=== PATIENT | male | born 1980 | race Two or more races ===

== ENCOUNTER 2018-05-28 01:26 | Inpatient (IN) | payer MEDICAID ==
[~2018-05-28] VITALS: Ht 185.4 cm; Wt 105.6 kg
[2018-05-28] MEDS ORDERED: ALBUTEROL SULF 2.5 MG/0.5ML(0.5%) NEB SOLN NEB ONE ×3 (01:45→03:30)
[2018-05-28] MEDS ORDERED: IPRATROPIUM BROM 0.5 MG/2.5ML INH SOL NEB ONE ×2 (01:45→02:30)
[2018-05-28] MEDS ORDERED: methylPREDNISolone SOD SUCC 125 MG/2 ML VL IV ONE (02:30)
[2018-05-28 03:44] LABS: Basophils # (auto) 0.1 uL; Hemoglobin 11.5 g/dL (13.5-17.5); Lymphocytes # (auto) 2.1 uL; Neutrophils % (auto) 62.2 % (37.0-80.0); Red Blood Cells 5.36 10^6/uL (4.5-5.90)
[2018-05-28 03:46] LABS: Basophils % (auto) 1.2 % (0.0-2.0); Eosinophils # (auto) 0.3 uL; Eosinophils % (auto) 3.2 % (0.0-7.0); Hematocrit 37.6 % (41.0-53.0); Lymphocytes % (auto) 24.4 % (10.0-50.0); Mean Corpuscular Hemoglobin 21.5 pg (28.0-32.0); Mean Corpuscular Hgb Conc. 30.7 g/dL (32.0-36.0); Mean Corpuscular Volume 70.1 fL (80.0-100.0); Monocytes # (auto) 0.8 uL; Neutrophils # (auto) 5.2 uL; Nucleated Red Blood Cells % 0.2 %; Platelet Count (auto) 306 10^3/uL (140-450); Red Cell Distribution Width 19.1 % (11.8-14.3); White Blood Cell 8.4 10^3/uL (4.4-10.8)
[2018-05-28 03:59] LABS: Albumin 3.1 g/dL (3.4-5.0); BUN/Creatinine Ratio 15.7; Calcium 7.6 mg/dL (8.5-10.1); Potassium 3.7 mmol/L (3.5-5.1)
[2018-05-28 04:00] LABS: INR 1.36 (0.9-1.15); Partial Thromboplastin Time 25.7 sec (23.78-33.04); Prothrombin Time 14.3 sec (9.27-12.13)
[2018-05-28 04:04] LABS: Bilirubin, Total 2.2 mg/dL (0.2-1.0); Total Protein 6.4 g/dL (6.4-8.2)
[2018-05-28] MEDS ORDERED: HEPARIN DRIP/D5W 100UNITS/ML 250 ML IV SCH (05:37)
[2018-05-28] MEDS ORDERED: HEPARIN SODIUM (PORCINE) 5000 UNITS/ML 1ML VIAL IV ONE (05:45)
[2018-05-28] MEDS ORDERED: HYDROcodone-ACET 5/325MG TAB PO PRN (06:15)
[2018-05-28] MEDS ORDERED: ONDANSETRON HCL 4 MG/2 ML VIAL IV PRN (06:15)
[2018-05-28] MEDS ORDERED: MORPHINE SULFATE 4 MG/ML SYR/VIAL IV PRN (06:15)
[2018-05-28] MEDS ORDERED: NITROGLYCERIN 0.4 MG SL TAB SL PRN (06:15)
[2018-05-28 07:16] LABS: Cholesterol 116 mg/dL (< 200); HDL Cholesterol 32 mg/dL (40-59); LDL Cholesterol 85 mg/dL (< 100); Triglycerides 75 mg/dL (< 150)
--- NOTE | 2018-05-28 09:33 | NUR ---
Telemetry admit from ER CASEY OBREGON admitted to Telemetry unit after SBAR received. Patient oriented to AMRIT Mantilla RN, unit, room, bed, and unit policies regarding patient care and visiting hours. Patient now on continuous telemetry monitoring, tele box # 25 and telemetry reading on arrival to unit is Sinus Tachycardia, HR-105. Patient placed on bedside oxygen, weighed by bed scale and encouraged to call if they need something. All questions and concerns addressed, patient verbalized understanding.
--- NOTE | 2018-05-28 09:45 | NUR ---
Opening Shift Note Assumed care of patient from Vero RN. Patient is asleep breathing even and unlabored with S/S of distress/SOB or pain. Easy to arouse by name. Instructed on POC and to call for assist PRN. Bed is in low position and call light is in reach. Will continue to monitor for changes Q1hr and PRN.
[2018-05-28] MEDS: FUROSEMIDE 40 MG/4 ML VIAL IV SCH (09:58)
[2018-05-28 10:33] LABS: Urine Bacteria NONE SEEN /hpf (None Seen); Urine Blood Negative /uL (Negative); Urine Specific Gravity 1.016 (1.001-1.035); Urine WBC <1 /hpf (0 - 3)
[2018-05-28 10:47] LABS: Alcohol, Urine < 3.0 mg/dL (0-5); Amphetamine Screen, Urine NEGATIVE (NEGATIVE); Barbiturate Scree,Urine NEGATIVE (NEGATIVE); Benzodiazephine Screen, Urine NEGATIVE (NEGATIVE); Cannabinoid Screen, Urine NEGATIVE (NEGATIVE); Cocaine Screen, Urine NEGATIVE (NEGATIVE); Opiate Scree,Urine NEGATIVE (NEGATIVE); Phencyclidine Screen, Urine NEGATIVE (NEGATIVE)
[2018-05-28] MEDS ORDERED: ALBUAER3 IN (12:34)
[2018-05-28] MEDS ORDERED: HCTZ25T PO (12:34)
[2018-05-28 13:00] VITALS: BP 134/83
[2018-05-28] MEDS: ACETAMINOPHEN 500 MG TAB PO PRN ×2 (14:08→22:02)
[2018-05-28] MEDS ORDERED: POTASSIUM CHLORIDE 8 MEQ TAB PO ONE (15:00)
[2018-05-28 17:21] VITALS: BP 118/69
[2018-05-28] MEDS: Ensure Enlive Strawberry 8oz Bottle PO SCH (18:03)
[2018-05-28 20:00] VITALS: BP 121/51
[2018-05-29 06:08] VITALS: BP 155/99
[2018-05-29 06:44] LABS: Basophils # (auto) 0 uL; Eosinophils # (auto) 0 uL; Hemoglobin 11.5 g/dL (13.5-17.5); Mean Corpuscular Volume 70.1 fL (80.0-100.0); Neutrophils % (auto) 79.3 % (37.0-80.0)
[2018-05-29 06:46] LABS: Basophils % (auto) 0.1 % (0.0-2.0); Hematocrit 37.8 % (41.0-53.0); Lymphocytes % (auto) 10.4 % (10.0-50.0); Mean Corpuscular Hemoglobin 21.3 pg (28.0-32.0); Mean Corpuscular Hgb Conc. 30.4 g/dL (32.0-36.0); Monocytes % (auto) 10.2 % (0.0-12.0); Neutrophils # (auto) 7.6 uL; Nucleated Red Blood Cells % 0.3 %; Platelet Count (auto) 347 10^3/uL (140-450); Red Blood Cells 5.39 10^6/uL (4.5-5.90); Red Cell Distribution Width 18.6 % (11.8-14.3); White Blood Cell 9.6 10^3/uL (4.4-10.8)
[2018-05-29 06:56] LABS: BUN/Creatinine Ratio 22.8; Calcium 8.2 mg/dL (8.5-10.1); Potassium 4.4 mmol/L (3.5-5.1)
--- NOTE | 2018-05-29 07:20 | NUR ---
CLOSING NOTE PATIENT IS RESTING IN BED WITH EVEN AND UNLABORED RESPIRATIONS, O2 ON AT 2L, NO S/S OF DISTRESS OR PAIN. ENDORSED CARE TO ERNESTINA
--- NOTE | 2018-05-29 07:40 | NUR ---
Assumed care of pt, awake and alert, no s&s of distress/sob or pain noted, instructed on poc and to call for assist prn, will continue to monitor for changes q1h and prn.
[2018-05-29] MEDS ORDERED: GIVE UN DILUTED IV STA (07:51)
[2018-05-29] MEDS ORDERED: ADENOSINE IV STA (07:51)
[2018-05-29] MEDS: POTASSIUM CHLORIDE 8 MEQ TAB PO SCH (08:49)
[2018-05-29] MEDS: Ensure Enlive Strawberry 8oz Bottle PO SCH ×3 (08:49→17:44)
[2018-05-29] MEDS: FUROSEMIDE 40 MG/4 ML VIAL IV SCH (08:49)
[2018-05-29 09:29] VITALS: BP 133/88
--- NOTE | 2018-05-29 09:45 | NUR ---
Opening Shift Note Assumed care of patient from day shift RN. Patient is asleep breathing even and unlabored with S/S of distress/SOB or pain. Easy to arouse by name. Instructed on POC and to call for assist PRN. Bed is in low position and call light is in reach. Will continue to monitor for changes Q1hr and PRN.
[2018-05-29 10:14] VITALS: BP 126/74
[2018-05-29] MEDS ORDERED: ALBUTEROL SULF 2.5 MG/0.5ML(0.5%) NEB SOLN ONE (10:27)
[2018-05-29] MEDS ORDERED: IPRATROPIUM BROM 0.5 MG/2.5ML INH SOL ONE (10:27)
--- NOTE | 2018-05-29 12:14 | NUR ---
Pt awake and alert, no s&s of distress/sob or pain noted, will continue to monitor for changes q1h and prn.
[2018-05-29 13:06] VITALS: BP 130/90
--- NOTE | 2018-05-29 15:53 | NUR ---
Pt sleeping, no s&s of distress/sob or pain noted, will continue to monitor for changes q1h and prn.
[2018-05-29 17:02] VITALS: BP 135/87
[2018-05-29] MEDS: SACUBITRIL-VALSARTAN 24mg/26mg TAB PO SCH (23:23)
[2018-05-29] MEDS: CARVEDILOL 3.125 MG TAB PO SCH (23:24)
[2018-05-30] VITALS (7 sets, daily range): BP systolic 90–118; BP diastolic 53–87
[2018-05-30 05:36] LABS: Basophils # (auto) 0.1 uL; Basophils % (auto) 0.9 % (0.0-2.0); Eosinophils # (auto) 0.2 uL; Eosinophils % (auto) 1.8 % (0.0-7.0); Hematocrit 38.5 % (41.0-53.0); Hemoglobin 11.7 g/dL (13.5-17.5); Lymphocytes # (auto) 1.8 uL; Mean Corpuscular Hemoglobin 21.3 pg (28.0-32.0); Mean Corpuscular Hgb Conc. 30.5 g/dL (32.0-36.0); Monocytes # (auto) 0.8 uL; Monocytes % (auto) 8.2 % (0.0-12.0); Neutrophils # (auto) 6.4 uL; Neutrophils % (auto) 69.1 % (37.0-80.0); Nucleated Red Blood Cells % 0.5 %; Platelet Count (auto) 360 10^3/uL (140-450); Red Cell Distribution Width 19.4 % (11.8-14.3); White Blood Cell 9.2 10^3/uL (4.4-10.8)
[2018-05-30 05:53] LABS: BUN/Creatinine Ratio 22.3; Calcium 8.2 mg/dL (8.5-10.1); Potassium 3.9 mmol/L (3.5-5.1)
[2018-05-30] MEDS: SACUBITRIL-VALSARTAN 24mg/26mg TAB PO SCH ×2 (09:16→22:00)
[2018-05-30] MEDS: FUROSEMIDE 40 MG/4 ML VIAL IV SCH (09:16)
[2018-05-30] MEDS: Ensure Enlive Strawberry 8oz Bottle PO SCH ×3 (09:17→18:06)
[2018-05-30] MEDS: POTASSIUM CHLORIDE 8 MEQ TAB PO SCH (09:17)
[2018-05-30] MEDS: CARVEDILOL 3.125 MG TAB PO SCH ×2 (09:17→22:00)
--- NOTE | 2018-05-30 12:27 | NUR ---
Pt awake and alert, easily aroused, no s&s of distress/sob or pain noted, will continue to monitor for changes q1h and prn.
--- NOTE | 2018-05-30 16:00 | NUR ---
PT REPORTS THAT HE IS DOING WELL AND DOES NOT NEED P.T. INTERVENTION.
--- NOTE | 2018-05-30 16:02 | NUR ---
Pt awake and alert, easily aroused, no s&s of distress/sob or pain noted, will continue to monitor for changes q1h and prn.
--- NOTE | 2018-05-30 20:20 | NUR ---
Respiratory note: PT ASSESSED FOR PRN MED NEB TX. HR 84, RR 18, SPO2 99% ON R/A, BS DIMINISHED. NO SIGNS OF ANY RESPIRATORY DISTRESS N0TED. ADVISED PT TO PLEASE CALL IF NEEDED.
--- NOTE | 2018-05-30 21:40 | NUR ---
Opening Shift Note Assumed care of patient from day shift RN. Patient is awake sitting up in bed asking for a snake. Respirations are even and unlabored with no S/S of distress/SOB or pain. Instructed on POC and to call for assist PRN. Bed is in low position and call light is in reach. Will continue to monitor for changes Q1hr and PRN. Addendum: 05/31/18 at 0716 by Amairani Castro RN asking for a snack
--- NOTE | 2018-05-30 23:45 | NUR ---
Respiratory note: PLACED PT ON CPAP PER HIS REQUEST AND ORDERS FOR [facility]. PT WEARING A SIZE MEDIUM FACE MASK, PROTECTION BARRIER IN PLACE, NO SIGNS OF ANY SKIN REDNESS OR BREAKDOWN NOTED. PT FELT COMFORTABLE WITH 13CM H2O PRESSURES WITH 3L B/I. WATER FILLED TO APPROPRIATE LEVELS. PT CONNECTED TO CONTINUOUS PULSOX SPO2 95%, BS COARSE/DIMINISHED. PT IS SLEEPING COMFORTABLY TOLERATING CPAP WELL. CPAP AND PULSOX CONNECTED TO RED OUTLET. WILL CONTINUE TO MONITOR PT.
[2018-05-31] VITALS (8 sets, daily range): BP systolic 93–109; BP diastolic 54–70
--- NOTE | 2018-05-31 07:00 | NUR ---
PT OFF HOSPITAL CPAP MACHINE. PT IS SITTING UP IN BED. NO RESPIRATORY DISTRESS NOTED. SPO2 98% ON 3 L NC HR 86 RR 20 B/S DIMINISHED.
--- NOTE | 2018-05-31 07:04 | NUR ---
CLOSING NOTE PATIENT IS asleep IN BED WITH BIPAP on and EVEN AND UNLABORED RESPIRATIONS. No S/S OF DISTRESS OR PAIN. ENDORSED CARE TO day shift nurse.
[2018-05-31] MEDS: Ensure Enlive Strawberry 8oz Bottle PO SCH ×3 (07:48→17:42)
--- NOTE | 2018-05-31 07:55 | NUR ---
PATIENT ROUNDS PATIENT LYING IN BED, NO DISTRESS NOTED. BED IN LOWEST POSITION, SIDE RAILS UP X2, CALL LIGHT WITHIN REACH. WILL CONTINUE TO MONITOR AND INITIATE PLAN OF CARE.
[2018-05-31 08:02] LABS: Basophils # (auto) 0.1 uL; Basophils % (auto) 1.3 % (0.0-2.0); Hemoglobin 12.3 g/dL (13.5-17.5); Lymphocytes # (auto) 2.9 uL; Monocytes # (auto) 0.7 uL
[2018-05-31 08:05] LABS: Eosinophils # (auto) 0.4 uL; Eosinophils % (auto) 5.1 % (0.0-7.0); Hematocrit 40.4 % (41.0-53.0); Lymphocytes % (auto) 32.7 % (10.0-50.0); Mean Corpuscular Hemoglobin 21.3 pg (28.0-32.0); Mean Corpuscular Hgb Conc. 30.3 g/dL (32.0-36.0); Mean Corpuscular Volume 70.1 fL (80.0-100.0); Neutrophils # (auto) 4.7 uL; Neutrophils % (auto) 52.9 % (37.0-80.0); Nucleated Red Blood Cells % 0.4 %; Platelet Count (auto) 399 10^3/uL (140-450); Red Blood Cells 5.77 10^6/uL (4.5-5.90); White Blood Cell 8.8 10^3/uL (4.4-10.8)
[2018-05-31 08:12] LABS: Red Cell Distribution Width 18.9 % (11.8-14.3)
[2018-05-31 08:29] LABS: Calcium 8.1 mg/dL (8.5-10.1); Potassium 3.9 mmol/L (3.5-5.1)
[2018-05-31 08:31] LABS: BUN/Creatinine Ratio 21.6
[2018-05-31] MEDS: CARVEDILOL 3.125 MG TAB PO SCH ×2 (09:26→23:04)
[2018-05-31] MEDS: SACUBITRIL-VALSARTAN 24mg/26mg TAB PO SCH (09:35)
[2018-05-31] MEDS: POTASSIUM CHLORIDE 8 MEQ TAB PO SCH (09:36)
[2018-05-31] MEDS: FUROSEMIDE 40 MG/4 ML VIAL IV SCH (09:36)
[2018-05-31] MEDS: ACETAMINOPHEN 500 MG TAB PO PRN (16:52)
--- NOTE | 2018-05-31 18:49 | NUR ---
RT NOTE PT WAS SEEN BY RT TO DISCUSS CPAP FOR NOC ORDER. PT STATES THAT HE WILL GO ON AROUND MIDNIGHT. HR 85, RR 16, BS DIM, POX 99% ON 3L NASAL CANNULA. NO SOB OR DISTRESS NOTED. WILL RETURN FOR CPAP Addendum: 05/31/18 at 2012 by Leatha Longo RT Amended: Links added.
--- NOTE | 2018-05-31 20:00 | NUR ---
OPENING NOTES SHIFT REPORT RECEIVED BY DAY SHIFT NURSE. UPON ASSESSMENT, PT AWAKE AND ALERT X 4 WITH NO S/S OF DISTRESS WHILE ON 2L OF O2 VIA N/C. BED IS IN LOWEST POSITION AND BRAKES ARE LOCKED WITH THE SIDE RAILS UP X2. POC DISCUSSED WITH PATIENT, WILL CONTINUE TO MONITOR.
--- NOTE | 2018-06-01 00:30 | NUR ---
RT NOTE PT PLACED ON HOSPITAL OWNED HOME CPAP UNIT # RESPIRATORY 2 ON STATED SETTINGS WITH MEDIUM MASK. CPAP IS PLUGGED TO RED OUTLET. PT IS ON BEDSIDE POX PER PROTOCOL. HUMIDIFIER CHAMBER FILLED TO FILL LINE AND SET TO 1. PT HAS A 4L BLEED IN. PT SHOWN THE QUICK RELEASE ON MASK AND APPEARS TO UNDERSTAND. PT AWARE TO CALL IF HE NEEDS ANY ADJUSTMENTS. CONT ORDERED. POX 96% Addendum: 06/01/18 at 0130 by Leatha Lnogo RT Amended: Links added.
[2018-06-01] MEDS: SACUBITRIL-VALSARTAN 24mg/26mg TAB PO SCH ×2 (00:45→09:53)
--- NOTE | 2018-06-01 02:24 | NUR ---
RT NOTE ROUTINE CPAP CHECK DONE. PT ON HOSPITAL OWNED HOME CPAP UNIT # RESPIRATORY 2 ON STATED SETTINGS WITH MEDIUM MASK. CPAP IS PLUGGED TO RED OUTLET. PT IS ON BEDSIDE POX PER PROTOCOL. HUMIDIFIER CHAMBER FILLED ADEQUATELY AND SET TO 1. PT HAS A 4L BLEED IN. PT IS SLEEPING AND APPEARS COMFORTABLE AT THIS TIME. CONT ORDERED. POX 95% Addendum: 06/01/18 at 0305 by Leatha Longo RT Amended: Links added.
--- NOTE | 2018-06-01 04:08 | NUR ---
RT NOTE ROUTINE CPAP CHECK DONE. PT ON HOSPITAL OWNED HOME CPAP UNIT # RESPIRATORY 2 ON STATED SETTINGS WITH MEDIUM MASK. CPAP IS PLUGGED TO RED OUTLET. PT IS ON BEDSIDE POX PER PROTOCOL. HUMIDIFIER CHAMBER FILLED ADEQUATELY AND SET TO 1. PT HAS A 4L BLEED IN. PT IS SLEEPING AND APPEARS COMFORTABLE AT THIS TIME. CONT ORDERED. POX 94% Addendum: 06/01/18 at 0417 by Leatha Longo RT Amended: Links added.
[2018-06-01 05:31] VITALS: BP 108/68
[2018-06-01 06:22] LABS: Basophils # (auto) 0.1 uL; Eosinophils # (auto) 0.6 uL; Hemoglobin 11.9 g/dL (13.5-17.5); Lymphocytes # (auto) 2.5 uL; Mean Corpuscular Hgb Conc. 29.7 g/dL (32.0-36.0); Monocytes # (auto) 0.7 uL
[2018-06-01 06:27] LABS: Basophils % (auto) 1.1 % (0.0-2.0); Eosinophils % (auto) 7.3 % (0.0-7.0); Hematocrit 40.1 % (41.0-53.0); Lymphocytes % (auto) 29.6 % (10.0-50.0); Mean Corpuscular Volume 70.6 fL (80.0-100.0); Monocytes % (auto) 8.9 % (0.0-12.0); Neutrophils # (auto) 4.4 uL; Neutrophils % (auto) 53.1 % (37.0-80.0); Nucleated Red Blood Cells % 0.2 %; Platelet Count (auto) 354 10^3/uL (140-450); Red Blood Cells 5.68 10^6/uL (4.5-5.90); Red Cell Distribution Width 18.8 % (11.8-14.3); White Blood Cell 8.3 10^3/uL (4.4-10.8)
[2018-06-01 06:42] LABS: Potassium 4.1 mmol/L (3.5-5.1)
[2018-06-01 06:49] LABS: BUN/Creatinine Ratio 21.9
--- NOTE | 2018-06-01 07:25 | NUR ---
Opening Shift Note Assumed care of patient, awake and alert. No S/S of distress/SOB or pain. HOB semi-harding's, at lowest setting, side-rails up x2 for safety. Call light on hand, instructed on POC and to call for assist PRN, will continue to monitor for changes Q1hr and PRN.
--- NOTE | 2018-06-01 07:40 | NUR ---
RT NOTE: PT TOOK CPAP OFF. CURRENTLY ON 4L NC SPO2 100 HR 78 RR 16. BREATH SOUNDS CLEAR T/O. NO RESPIRATORY DISTRESS NOTED. PT UNDERSTOOD TO INFORM NURSE TO CALL RT IF NEED FOR CPAP ARISES. WILL CONTINUE TO MONITOR.
[2018-06-01 07:41] VITALS: BP 115/73
[2018-06-01] MEDS: ACETAMINOPHEN 500 MG TAB PO PRN (08:31)
[2018-06-01 09:00] VITALS: BP 106/72
[2018-06-01] MEDS: FUROSEMIDE 40 MG/4 ML VIAL IV SCH (09:53)
[2018-06-01] MEDS: POTASSIUM CHLORIDE 8 MEQ TAB PO SCH (09:53)
[2018-06-01] MEDS: CARVEDILOL 3.125 MG TAB PO SCH (09:54)
[2018-06-01 12:23] VITALS: BP 106/72
[2018-06-01 13:00] VITALS: BP 102/68
== END 2018-06-01 14:00 | disposition home or self-care (01) | DRG 190 ==
LOC: ER 01:32 → TELE 06:12 → TELE-WESTW 09:40
PROVIDERS: ADMIT Nurse Practitioner Family; ATTEND Internal Medicine
PROC: 5A09357 Assistance with Respiratory Ventilation, Less than 24 Consecutive Hours, Continuous Positive Airway Pressure (ICD-10-PCS; principal; 2018-05-30)
PROC: 5A09357 Assistance with Respiratory Ventilation, Less than 24 Consecutive Hours, Continuous Positive Airway Pressure (ICD-10-PCS; 2018-06-01)
DX: I21.4 Non-ST elevation (NSTEMI) myocardial infarction (principal); I50.43 Acute on chronic combined systolic (congestive) and diastolic (congestive) heart failure; E44.0 Moderate protein-calorie malnutrition; E66.01 Morbid (severe) obesity due to excess calories; E87.1 Hypo-osmolality and hyponatremia; I11.0 Hypertensive heart disease with heart failure; I25.5 Ischemic cardiomyopathy; G47.30 Sleep apnea, unspecified; J45.909 Unspecified asthma, uncomplicated; F15.10 Other stimulant abuse, uncomplicated; Z68.30 Body mass index [BMI] 30.0-30.9, adult
CPT/HCPCS: 36415; 71045; 78452; 80048; 80053; 80061; 80307; 81001; 83735; 83880; 84484; 85025; 85379; 85610; 85730; 93005; 93017; 93306; 94640; 94660; 94761; 96374; G0378; J0153

== ENCOUNTER 2018-06-28 12:06 | Inpatient (IN) | payer MEDICAID ==
[~2018-06-28] VITALS: Ht 185.4 cm; Wt 169.8 kg
[~2018-06-28 12:06] MED LIST: ALBUAER3 IN; HCTZ25T PO
[2018-06-28] MEDS ORDERED: SODIUM CHLORIDE 0.9% 1,000 ML IV ONE (12:33)
[2018-06-28 13:31] LABS: Eosinophils # (auto) 0.2 uL; Hemoglobin 11.3 g/dL (13.5-17.5); Lymphocytes # (auto) 1.6 uL; Neutrophils # (auto) 5.6 uL; Nucleated Red Blood Cells % 0.4 %; Urine Bacteria NONE SEEN /hpf (None Seen); Urine Blood Negative /uL (Negative); Urine Specific Gravity 1.003 (1.001-1.035); Urine WBC <1 /hpf (0 - 3); White Blood Cell 8.5 10^3/uL (4.4-10.8)
[2018-06-28 13:32] LABS: Basophils # (auto) 0.1 uL; Basophils % (auto) 1.5 % (0.0-2.0); Eosinophils % (auto) 2.6 % (0.0-7.0); Hematocrit 37.1 % (41.0-53.0); Lymphocytes % (auto) 18.8 % (10.0-50.0); Mean Corpuscular Hemoglobin 20.5 pg (28.0-32.0); Mean Corpuscular Hgb Conc. 30.5 g/dL (32.0-36.0); Monocytes % (auto) 11.3 % (0.0-12.0); Neutrophils % (auto) 65.8 % (37.0-80.0); Platelet Count (auto) 440 10^3/uL (140-450); Red Cell Distribution Width 19.2 % (11.8-14.3)
[2018-06-28 13:34] LABS: Mean Corpuscular Volume 67.3 fL (80.0-100.0)
[2018-06-28 13:44] LABS: Albumin 3.2 g/dL (3.4-5.0); Alcohol, Urine < 3.0 mg/dL (0-5); Amphetamine Screen, Urine NEGATIVE (NEGATIVE); Barbiturate Scree,Urine NEGATIVE (NEGATIVE); Benzodiazephine Screen, Urine NEGATIVE (NEGATIVE); Calcium 7.9 mg/dL (8.5-10.1); Cannabinoid Screen, Urine NEGATIVE (NEGATIVE); Cocaine Screen, Urine NEGATIVE (NEGATIVE); Opiate Scree,Urine NEGATIVE (NEGATIVE); Phencyclidine Screen, Urine NEGATIVE (NEGATIVE); Potassium 3.4 mmol/L (3.5-5.1)
[2018-06-28 13:45] LABS: INR 1.33 (0.9-1.15); Partial Thromboplastin Time 26.8 sec (23.78-33.04)
[2018-06-28 13:46] LABS: BUN/Creatinine Ratio 10.9
[2018-06-28 13:48] LABS: Bilirubin, Total 2.7 mg/dL (0.2-1.0); Total Protein 6.4 g/dL (6.4-8.2)
[2018-06-28] MEDS ORDERED: FUROSEMIDE 20 MG/2 ML VIAL IV ONE (14:15)
[2018-06-28] MEDS ORDERED: SPIRONOLACTONE 25 MG TAB PO ONE (14:15)
[2018-06-28] MEDS ORDERED: LORazepam 0.5 MG TAB PO PRN (16:45)
[2018-06-28] MEDS ORDERED: TEMAZEPAM 15 MG CAP PO PRN (16:45)
[2018-06-28] MEDS ORDERED: MORPHINE SULFATE 4 MG/ML SYR/VIAL IV PRN ×2 (16:45)
[2018-06-28] MEDS ORDERED: NITROGLYCERIN 0.4 MG SL TAB SL PRN (16:45)
[2018-06-28] MEDS ORDERED: POTASSIUM EFFERVESENT TAB 25 MEQ PO ONE (16:45)
[2018-06-28] MEDS ORDERED: LACTULOSE 20Gm/30ML SOLN PO PRN (16:45)
[2018-06-28] MEDS ORDERED: PROMETHAZINE HCL 25 MG/ML 1ML IV PRN (16:45)
[2018-06-28] MEDS ORDERED: ENOXAPARIN SOD 40 MG/0.4 ML SYRINGE SC SCH (16:48)
[2018-06-28] MEDS: FUROSEMIDE 40 MG/4 ML VIAL IV SCH (18:07)
[2018-06-28] MEDS: SPIRONOLACTONE 25 MG TAB PO SCH (18:07)
[2018-06-28] MEDS ORDERED: ALBUTEROL SULF 2.5 MG/0.5ML(0.5%) NEB SOLN NEB PRN (20:00)
[2018-06-28 20:05] VITALS: BP 122/84
--- NOTE | 2018-06-28 20:05 | NUR ---
Telemetry admit from ER SABASCASEY admitted to Telemetry unit after no SBAR received. Patient oriented to ANISHA WALTERS, RN primary RN, unit, room, bed, and unit policies regarding patient care and visiting hours. Patient now on continuous telemetry monitoring, tele box # 17 and telemetry reading on arrival to unit is normal sinus rhythm at 97 beats per minute. Patient placed on bedside oxygen at 2 liters per oxygen via nasal cannula, weighed by bedscale and encouraged to call if they need something. All questions and concerns addressed, patient verbalized understanding. Patient reporting 8/10 chest pain, no radiation to extremities. Pain lasted less than five minutes, as soon as RN left room and returned with EKG machine patient reported pain had ceased. EKG performed, reading normal sinus rhythm with old infarct per machine. Patient educated to inform RN if pain returned, patient verbalized understanding. Bed in lowest locked position, side rails up x2, call light within reach. No s/s of distress. Will continue to monitor patient every hour and as needed.
[2018-06-28 20:45] VITALS: BP 117/49
[2018-06-28] MEDS: DOXYCYCLINE 100MG/250ML 250 ML IV SCH (21:04)
[2018-06-28] MEDS: SODIUM CHLOR 0.9% PF (SALINE LOCK) 10ML VIAL/SYR IV SCH (21:46)
--- NOTE | 2018-06-28 21:59 | NUR ---
Run of Vtach Received call from BEN informing RN that patient had had nine beats of Vtach. Patient assessed and found to be asymptomatic, had sat up to relieve leg cramp. Vital signs at this time 138/79, 95 heart rate, 94% oxygen saturation, no pain. Previous EKG and strip from BEN of patient's Vtach shown to Maribeth Garcia TRANSIT BUS OPERATOR. TRANSIT BUS OPERATOR reiterated order for cardiology consult, no other orders at this time. Will continue to monitor patient.
[2018-06-28 22:00] VITALS: BP 122/84
[2018-06-28] MEDS ORDERED: CARVEDILOL 3.125 MG TAB PO SCH ×2 (22:00)
[2018-06-28] MEDS: ALBUTEROL SULF 2.5 MG/0.5ML(0.5%) NEB SOLN NEB SCH (23:57)
[2018-06-28] MEDS: IPRATROPIUM BROM 0.5 MG/2.5ML INH SOL NEB SCH (23:57)
--- NOTE | 2018-06-29 02:27 | NUR ---
Trigeminal PVC's RN received call from BEN reporting that patient had trigeminal PVC's. Patient assessed and found to be asymptomatic. No s/s of distress, no other needs at this time. Will continue to monitor.
[2018-06-29] MEDS ORDERED: FURO40TA PO (03:19)
[2018-06-29] MEDS: ACETAMINOPHEN 500 MG TAB PO PRN (03:51)
[2018-06-29] MEDS: HYDROcodone-ACET 5/325MG TAB PO PRN ×2 (04:00→12:47)
[2018-06-29 05:05] VITALS: BP 140/78
--- NOTE | 2018-06-29 05:15 | NUR ---
MRSA Swab MRSA nasal swab collected and sent to lab as per protocol. Patient tolerated well. Will continue to monitor.
--- NOTE | 2018-06-29 06:45 | NUR ---
Closing Note Patient lying in bed, eyes closed, respirations even and unlabored, appears asleep. Awakens to touch and name. No s/s of distress. Bed in lowest locked position, side rails up x2, call light within reach. Will endorse care to dayshift RN.
[2018-06-29] MEDS: FUROSEMIDE 40 MG/4 ML VIAL IV SCH ×2 (06:51→18:13)
[2018-06-29] MEDS: SODIUM CHLOR 0.9% PF (SALINE LOCK) 10ML VIAL/SYR IV SCH ×3 (06:52→22:05)
[2018-06-29] MEDS: SPIRONOLACTONE 25 MG TAB PO SCH ×2 (06:52→18:13)
[2018-06-29] MEDS: ALBUTEROL SULF 2.5 MG/0.5ML(0.5%) NEB SOLN NEB SCH ×3 (07:01→18:26)
[2018-06-29] MEDS: IPRATROPIUM BROM 0.5 MG/2.5ML INH SOL NEB SCH ×3 (07:01→18:26)
--- NOTE | 2018-06-29 07:34 | NUR ---
Opening Shift Note Assumed care of patient, awake and alert. No S/S of distress/SOB or pain. Instructed on POC and to call for assist PRN, will continue to monitor for changes Q1hr and PRN.
[2018-06-29 07:38] LABS: Basophils # (auto) 0.1 uL; Eosinophils # (auto) 0.4 uL; Lymphocytes # (auto) 2.5 uL; Mean Corpuscular Volume 67.6 fL (80.0-100.0); Monocytes # (auto) 0.8 uL; Neutrophils # (auto) 4.7 uL
[2018-06-29 07:40] LABS: Basophils % (auto) 1.4 % (0.0-2.0); Eosinophils % (auto) 4.7 % (0.0-7.0); Hematocrit 35.5 % (41.0-53.0); Hemoglobin 11.1 g/dL (13.5-17.5); Lymphocytes % (auto) 29.5 % (10.0-50.0); Mean Corpuscular Hemoglobin 21.2 pg (28.0-32.0); Mean Corpuscular Hgb Conc. 31.3 g/dL (32.0-36.0); Monocytes % (auto) 9.2 % (0.0-12.0); Neutrophils % (auto) 55.2 % (37.0-80.0); Nucleated Red Blood Cells % 0.3 %; Platelet Count (auto) 394 10^3/uL (140-450); Red Blood Cells 5.24 10^6/uL (4.5-5.90); White Blood Cell 8.5 10^3/uL (4.4-10.8)
[2018-06-29 07:56] LABS: BUN/Creatinine Ratio 11.3; Calcium 8.3 mg/dL (8.5-10.1); Potassium 3.6 mmol/L (3.5-5.1)
[2018-06-29 08:00] VITALS: BP 130/76
[2018-06-29 08:00] LABS: Bilirubin, Total 2.7 mg/dL (0.2-1.0); Total Protein 6.4 g/dL (6.4-8.2)
[2018-06-29] MEDS: DOXYCYCLINE 100MG/250ML 250 ML IV SCH ×2 (08:00→19:52)
[2018-06-29] MEDS ORDERED: FUROSEMIDE 40 MG/4 ML VIAL IV SCH (10:00)
[2018-06-29] MEDS: ENOXAPARIN SOD 40 MG/0.4 ML SYRINGE SC SCH ×2 (10:12→22:04)
[2018-06-29] MEDS: PANTOPRAZOLE 40 MG TAB PO SCH (10:13)
[2018-06-29] MEDS: ASPirin 81 mg TAB PO SCH (10:13)
[2018-06-29] MEDS: POTASSIUM CHL 20 Meq TABLET PO SCH (10:13)
[2018-06-29] MEDS: ENALAPRIL MALEATE 2.5 MG TAB PO SCH (10:14)
[2018-06-29] MEDS: NITROGLYCERIN 0.2MG/HR TOPICAL PATCH TD SCH (10:15)
--- NOTE | 2018-06-29 14:42 | NUR ---
Dr. Torres at bedside.
--- NOTE | 2018-06-29 18:53 | NUR ---
end of shift note: Patient resting comfortably in bed, no s/s of distress/SOB. No c/o pain. Family at bedside. Bed at lowest position and call light within reach. Will endorse care to NOC RN.
--- NOTE | 2018-06-29 19:05 | NUR ---
ASSUMED PATIENT CARE- NOC SHIFT PATIENT IS ALERT AND ORIENTED, ANSWERS IN COMPLETE SENTENCES AND MAKES APPROPRIATE EYE CONTACT. PATIENT IS RESTING IN BED WATCHING TELEVISION. BED IS LOCKED IN LOWEST POSITION, BED RAILS UP X2 AND HEAD OF BED IS UP >30 DEGREES FOR SAFETY PRECAUTION. BEDSIDE TABLE WITHIN REACH, CALL LIGHT WITHIN REACH. DISCUSSED POC WITH PATIENT AND INSTRUCTED PATIENT TO CALL PRN. WILL CONTINUE TO MONITOR Q1H AND PRN.
[2018-06-29 20:05] VITALS: BP 119/78
[2018-06-29 22:00] VITALS: BP 119/78
--- NOTE | 2018-06-29 22:30 | NUR ---
PT IS NOT READY TO SLEEP AT THIS TIME. WANTS TO GO ON BIPAP AT 1 AM
[2018-06-30] VITALS (7 sets, daily range): BP systolic 108–132; BP diastolic 53–83
[2018-06-30] MEDS: ALBUTEROL SULF 2.5 MG/0.5ML(0.5%) NEB SOLN NEB SCH ×4 (00:51→18:58)
[2018-06-30] MEDS: IPRATROPIUM BROM 0.5 MG/2.5ML INH SOL NEB SCH ×4 (00:51→18:58)
--- NOTE | 2018-06-30 01:05 | NUR ---
BIPAP ON. PATIENT TOLERATING WELL.
--- NOTE | 2018-06-30 02:19 | NUR ---
ROUNDS PATIENT SLEEPING EYES CLOSED AND USING BIPAP. PATIENT TOLERATING WELL. BREATHS ARE EVEN. NO S/SX OF DISTRESS, SOB OR PAIN. WILL CONTINUE TO MONITOR Q1H AND PRN.
[2018-06-30 06:12] LABS: Basophils # (auto) 0.1 uL; Eosinophils # (auto) 0.5 uL; Lymphocytes # (auto) 2.4 uL; Neutrophils # (auto) 4.3 uL
[2018-06-30] MEDS: FUROSEMIDE 40 MG/4 ML VIAL IV SCH ×2 (06:12→18:12)
[2018-06-30] MEDS: SODIUM CHLOR 0.9% PF (SALINE LOCK) 10ML VIAL/SYR IV SCH ×3 (06:13→21:23)
[2018-06-30] MEDS: SPIRONOLACTONE 25 MG TAB PO SCH ×2 (06:13→18:10)
[2018-06-30 06:14] LABS: Basophils % (auto) 1.5 % (0.0-2.0); Eosinophils % (auto) 6.7 % (0.0-7.0); Hematocrit 36.8 % (41.0-53.0); Hemoglobin 11.1 g/dL (13.5-17.5); Lymphocytes % (auto) 29.8 % (10.0-50.0); Mean Corpuscular Hemoglobin 20.4 pg (28.0-32.0); Mean Corpuscular Hgb Conc. 30.2 g/dL (32.0-36.0); Mean Corpuscular Volume 67.4 fL (80.0-100.0); Monocytes # (auto) 0.6 uL; Nucleated Red Blood Cells % 0.2 %; Platelet Count (auto) 376 10^3/uL (140-450); Red Blood Cells 5.45 10^6/uL (4.5-5.90)
[2018-06-30 06:28] LABS: Potassium 3.8 mmol/L (3.5-5.1)
[2018-06-30 06:33] LABS: BUN/Creatinine Ratio 13.6; Calcium 8.4 mg/dL (8.5-10.1)
--- NOTE | 2018-06-30 06:55 | NUR ---
Respiratory note: CAME INTO PATIENT'S ROOM AND FOUND PATIENT OFF OF BIPAP. PATIENT STATED HE WAS TAKEN OFF ONE HOUR PRIOR TO ME WALKING IN BY RN . PATIENT WAS AWAKE AND ALERT, NO RESPIRATORY NOTED OR STATED. PATIENT WAS THEN PLACED ON 2 L NASAL CANNULA AND WAS CONNECTED TO CONTINUOUS PULSE OX. PATIENT ALSO RECEIVED BREATHING TX AND TOLERATED IT WELL. NO ADVERSE REACTIONS NOTED. WILL CONTINUE TO MONITOR PATIENT.
--- NOTE | 2018-06-30 07:35 | NUR ---
Opening Shift Note Assumed care of patient, sitting up in bed awake and alert. Patient c/o headache 10/10, will medicate as prescribed by MD. Instructed on POC and to call for assist PRN, will continue to monitor for changes Q1hr and PRN.
[2018-06-30] MEDS: DOXYCYCLINE 100MG/250ML 250 ML IV SCH (10:48)
[2018-06-30] MEDS: NITROGLYCERIN 0.2MG/HR TOPICAL PATCH TD SCH (10:49)
[2018-06-30] MEDS: ENOXAPARIN SOD 40 MG/0.4 ML SYRINGE SC SCH ×2 (10:50→21:23)
[2018-06-30] MEDS: PANTOPRAZOLE 40 MG TAB PO SCH (10:51)
[2018-06-30] MEDS: ASPirin 81 mg TAB PO SCH (10:51)
[2018-06-30] MEDS: ENALAPRIL MALEATE 2.5 MG TAB PO SCH (10:51)
[2018-06-30] MEDS: POTASSIUM CHL 20 Meq TABLET PO SCH (10:51)
[2018-06-30] MEDS: ACETAMINOPHEN 500 MG TAB PO PRN (10:51)
--- NOTE | 2018-06-30 12:00 | NUR ---
Respiratory note: UNABLE TO GIVE SCHEDULED MED NEB TX DUE TO EMERGENCIES THROUGHOUT THE HOSPITAL. NO RESPIRATORY DISTRESS NOTED, WILL CONTINUE TO MONITOR PATIENT.
[2018-06-30] MEDS ORDERED: AZITHROMYCIN 250 MG TAB PO ONE (14:15)
[2018-06-30] MEDS: HYDROcodone-ACET 5/325MG TAB PO PRN (18:10)
--- NOTE | 2018-06-30 18:25 | NUR ---
END OF SHIFT NOTE: Patient is sitting up in bed, resting, no s/s of distress noted or stated. Bed at lowest position and call light within reach. Will endorse care to NOC RN.
--- NOTE | 2018-06-30 19:10 | NUR ---
ASSUMED PATIENT CARE- NOC SHIFT PATIENT IS ALERT AND ORIENTED. PATIENT WAS STANDING ON SIDE OF BED, HE STATED THAT HE JUST RETUNED FROM USING THE RESTROOM. NO S/SX OF DISTRESS, SOB OR PAIN. ASSISTED PATIENT BACK INTO BED. BED RAILS UP X2, HEAD OF BED IS UP >45 DEGREES FOR SAFETY PRECAUTION. BED IS LOCKED IN LOWEST POSITION. BEDSIDE TABLE WITHIN REACH, CALL LIGHT WITHIN REACH. DISCUSSED POC WITH PATIENT AND INSTRUCTED PATIENT TO CALL PRN; PATIENT VERBALIZED UNDERSTANDING. PATIENT DENIES PAIN AT THIS TIME. WILL CONTINUE TO MONITOR Q1H AND PRN.
--- NOTE | 2018-06-30 19:20 | NUR ---
PROVIDED PATIENT WITH STERILE COLLECTION CUP AND INSTRUCTED PATIENT TO PROVIDE SPECIMEN FOR RESPIRATORY CULTURE. PATIENT VERBALIZED UNDERSTANDING.
[2018-07-01] MEDS: IPRATROPIUM BROM 0.5 MG/2.5ML INH SOL NEB SCH ×2 (00:35→06:04)
[2018-07-01] MEDS: ALBUTEROL SULF 2.5 MG/0.5ML(0.5%) NEB SOLN NEB SCH ×2 (00:35→06:04)
--- NOTE | 2018-07-01 02:55 | NUR ---
NOSE BLEED PATIENT STATES BIPAP IS DRYING UP HIS NOSE AND GAVE HIM A NOSE BLEED. VITAL SIGNS WITHIN NORMAL LIMITS. PATIENT DENIES HEADACHE, DENIES DIZZINESS, DENIES CONFUSION. PATIENT IS ASYMPTOMATIC. PATIENT REMOVED MASK AND I TURNED OFF BIPAP MACHINE. PATIENT IS ON 2L NC. NO S/SX OF DISTRESS OR SOB. RT NOTIFIED.
--- NOTE | 2018-07-01 03:00 | NUR ---
RESPIRATORY CULTURE SENT TO LAB.
[2018-07-01] MEDS: SODIUM CHLOR 0.9% PF (SALINE LOCK) 10ML VIAL/SYR IV SCH (05:37)
[2018-07-01] MEDS: FUROSEMIDE 40 MG/4 ML VIAL IV SCH (05:37)
[2018-07-01] MEDS: SPIRONOLACTONE 25 MG TAB PO SCH (05:37)
[2018-07-01 06:05] VITALS: BP 113/67
[2018-07-01 06:15] LABS: Basophils # (auto) 0.1 uL; Lymphocytes # (auto) 1.2 uL; Nucleated Red Blood Cells % 0.2 %
[2018-07-01 06:17] LABS: Basophils % (auto) 0.9 % (0.0-2.0); Eosinophils # (auto) 0.4 uL; Hematocrit 35.7 % (41.0-53.0); Hemoglobin 10.9 g/dL (13.5-17.5); Lymphocytes % (auto) 15.6 % (10.0-50.0); Mean Corpuscular Hemoglobin 20.6 pg (28.0-32.0); Mean Corpuscular Hgb Conc. 30.7 g/dL (32.0-36.0); Mean Corpuscular Volume 67.2 fL (80.0-100.0); Monocytes # (auto) 0.8 uL; Monocytes % (auto) 10.2 % (0.0-12.0); Neutrophils # (auto) 5.1 uL; Neutrophils % (auto) 68.3 % (37.0-80.0); Platelet Count (auto) 360 10^3/uL (140-450); Red Blood Cells 5.31 10^6/uL (4.5-5.90); White Blood Cell 7.5 10^3/uL (4.4-10.8)
[2018-07-01 06:39] LABS: Calcium 8.6 mg/dL (8.5-10.1); Potassium 3.7 mmol/L (3.5-5.1)
[2018-07-01 06:44] LABS: BUN/Creatinine Ratio 14.2
--- NOTE | 2018-07-01 07:30 | NUR ---
Opening Shift Note Assumed care of patient, awake and alert. No S/S of distress/SOB or pain. Instructed on POC and to call for assistance PRN, will continue to monitor for changes Q1hr and PRN.
[2018-07-01 08:00] VITALS: BP 115/64
[2018-07-01 09:00] VITALS: BP 115/64
[2018-07-01 09:42] VITALS: BP 113/67
[2018-07-01] MEDS ORDERED: AZITHROMYCIN 250 MG TAB PO SCH (10:00)
[2018-07-01] MEDS: POTASSIUM CHL 20 Meq TABLET PO SCH (10:17)
[2018-07-01] MEDS: ASPirin 81 mg TAB PO SCH (10:17)
[2018-07-01] MEDS: PANTOPRAZOLE 40 MG TAB PO SCH (10:18)
[2018-07-01] MEDS: ENALAPRIL MALEATE 2.5 MG TAB PO SCH (10:18)
[2018-07-01] MEDS: ENOXAPARIN SOD 40 MG/0.4 ML SYRINGE SC SCH (10:19)
[2018-07-01] MEDS: NITROGLYCERIN 0.2MG/HR TOPICAL PATCH TD SCH (10:19)
--- NOTE | 2018-07-01 10:30 | NUR ---
Discharge instructions given as ordered. Encourage to follow up with PMD as instructed. All questions and concerns addressed. Patient verbalized understanding. IV removed with catheter intact, pressure dressing applied. Patient tolerated well. Telemetry unit returned to ICU. Patient taken to vehicle via wheelchair with all personal belongings, accompanied by staff and family member. No distress noted at time of departure.
== END 2018-07-01 10:30 | disposition home or self-care (01) | DRG 190 ==
LOC: ER 12:06 → TELE 16:48 → TELE-EAST 19:58
PROVIDERS: ADMIT Internal Medicine; ATTEND Internal Medicine
DX: I21.4 Non-ST elevation (NSTEMI) myocardial infarction (principal); I50.43 Acute on chronic combined systolic (congestive) and diastolic (congestive) heart failure; E44.0 Moderate protein-calorie malnutrition; E66.01 Morbid (severe) obesity due to excess calories; I42.9 Cardiomyopathy, unspecified; R17 Unspecified jaundice; Z68.42 Body mass index [BMI] 45.0-49.9, adult; I13.0 Hypertensive heart and chronic kidney disease with heart failure and stage 1 through stage 4 chronic kidney disease, or unspecified chronic kidney disease; E87.6 Hypokalemia; J45.909 Unspecified asthma, uncomplicated; N18.2 Chronic kidney disease, stage 2 (mild); G47.30 Sleep apnea, unspecified; I25.2 Old myocardial infarction; J20.9 Acute bronchitis, unspecified; Z79.899 Other long term (current) drug therapy; Z80.3 Family history of malignant neoplasm of breast; Z80.51 Family history of malignant neoplasm of kidney; Z80.7 Family history of other malignant neoplasms of lymphoid, hematopoietic and related tissues; Z87.01 Personal history of pneumonia (recurrent); Z87.891 Personal history of nicotine dependence
CPT/HCPCS: 36415; 71046; 80048; 80053; 80061; 80307; 81001; 82550; 83690; 83735; 83880; 84443; 84484; 85025; 85379; 85610; 85652; 85730; 86141; 87070; 87081; 87205; 93005; 94640; 94660; 96372; 96374; 96376; G0378; J3490

== ENCOUNTER 2019-02-17 19:10 | Emergency (ER) | payer MEDICAID ==
[~2019-02-17] VITALS: Ht 185.4 cm; Wt 113.4 kg
[~2019-02-17 19:10] MED LIST changes: +CARV6.25 PO; +FURO1TAB31 PO; -HCTZ25T PO; +IBUP600T27 PO; +MONT10TA34 PO; +POTA10TA51 PO
[2019-02-17 19:41] LABS: Basophils # (auto) 0.1 uL; Eosinophils # (auto) 0.4 uL; Hemoglobin 10.6 g/dL (13.5-17.5); Monocytes # (auto) 0.8 uL; Nucleated Red Blood Cells % 0.3 %
[2019-02-17 19:43] LABS: Basophils % (auto) 0.8 % (0.0-2.0); Eosinophils % (auto) 5.6 % (0.0-7.0); Hematocrit 35.5 % (41.0-53.0); Lymphocytes # (auto) 1.7 uL; Lymphocytes % (auto) 22.6 % (10.0-50.0); Mean Corpuscular Hemoglobin 19.7 pg (28.0-32.0); Mean Corpuscular Hgb Conc. 29.8 g/dL (32.0-36.0); Mean Corpuscular Volume 66.2 fL (80.0-100.0); Neutrophils # (auto) 4.6 uL; Platelet Count (auto) 341 10^3/uL (140-450); Red Blood Cells 5.36 10^6/uL (4.5-5.90); White Blood Cell 7.7 10^3/uL (4.4-10.8)
[2019-02-17 19:45] LABS: Red Cell Distribution Width 21.3 % (11.8-14.3)
[2019-02-17 19:56] LABS: Albumin 3.4 g/dL (3.4-5.0); Anion Gap 6 (5-15); BUN/Creatinine Ratio 13.4; Blood Urea Nitrogen 17 mg/dL (7-18); Calcium 8.5 mg/dL (8.5-10.1); Carbon Dioxide 30 mmol/L (21-32); Chloride 101 mmol/L (98-107); GFR African American 83 mL/min; GFR Non-African American 68 mL/min; Glucose 95 mg/dL (74-106); Magnesium 2.2 mg/dL (1.6-2.6); Potassium 3.6 mmol/L (3.5-5.1); Sodium 137 mmol/L (136-145)
[2019-02-17 20:01] LABS: Alanine Aminotransferase 14 U/L (16-61); Alkaline Phosphatase 125 U/L (45-117); Aspartate Aminotransferase 18 U/L (15-37); Total Protein 7.3 g/dL (6.4-8.2)
[2019-02-18] MEDS ORDERED: ALBUTEROL SULF 2.5 MG/0.5ML(0.5%) NEB SOLN HHN ONE (01:00)
[2019-02-18] MEDS ORDERED: IPRATROPIUM BROM 0.5 MG/2.5ML INH SOL HHN ONE (01:00)
[2019-02-18 03:00] VITALS: BP 114/79
== END 2019-02-18 03:33 | disposition home or self-care (01) ==
LOC: ER 19:15
DX: G47.30 Sleep apnea, unspecified (principal); E66.01 Morbid (severe) obesity due to excess calories; J45.909 Unspecified asthma, uncomplicated; I13.0 Hypertensive heart and chronic kidney disease with heart failure and stage 1 through stage 4 chronic kidney disease, or unspecified chronic kidney disease; N18.9 Chronic kidney disease, unspecified; I50.9 Heart failure, unspecified; I25.2 Old myocardial infarction; F12.10 Cannabis abuse, uncomplicated; F15.10 Other stimulant abuse, uncomplicated; Z68.33 Body mass index [BMI] 33.0-33.9, adult
CPT/HCPCS: 36415; 71045; 80053; 83735; 83880; 84484; 85025; 93005; 94640; 99284; J7611; J7644

== ENCOUNTER 2019-06-20 00:57 | Inpatient (IN) | payer MEDICAID ==
[~2019-06-20] VITALS: Ht 185.4 cm; Wt 155.0 kg
[2019-06-20 01:44] LABS: Basophils # (auto) 0.1 uL; Hemoglobin 11.8 g/dL (13.5-17.5); Nucleated Red Blood Cells % 0.4 %
[2019-06-20 01:46] LABS: Basophils % (auto) 1.5 % (0.0-2.0); Eosinophils # (auto) 0.5 uL; Eosinophils % (auto) 5.6 % (0.0-7.0); Hematocrit 38.3 % (41.0-53.0); Lymphocytes # (auto) 2.1 uL; Lymphocytes % (auto) 25.5 % (10.0-50.0); Mean Corpuscular Hgb Conc. 30.7 g/dL (32.0-36.0); Mean Corpuscular Volume 68.3 fL (80.0-100.0); Monocytes # (auto) 0.7 uL; Neutrophils # (auto) 4.8 uL; Neutrophils % (auto) 58.4 % (37.0-80.0); Platelet Count (auto) 316 10^3/uL (140-450); Red Blood Cells 5.61 10^6/uL (4.5-5.90); Red Cell Distribution Width 18.6 % (11.8-14.3); White Blood Cell 8.3 10^3/uL (4.4-10.8)
[2019-06-20 01:47] LABS: Albumin 3.7 g/dL (3.4-5.0); BUN/Creatinine Ratio 13.4; Calcium 8.6 mg/dL (8.5-10.1); Potassium 3.9 mmol/L (3.5-5.1)
[2019-06-20 01:52] LABS: Bilirubin, Total 2.7 mg/dL (0.2-1.0); Magnesium 1.7 mg/dL (1.6-2.6); Total Protein 7.5 g/dL (6.4-8.2)
[2019-06-20 01:58] LABS: INR 1.37 (0.9-1.15); Partial Thromboplastin Time 27.5 sec (23.64-32.05)
[2019-06-20] MEDS ORDERED: FUROSEMIDE 40 MG/4 ML VIAL IV ONE (09:00)
[2019-06-20] MEDS ORDERED: TEMAZEPAM 15 MG CAP PO PRN (09:45)
[2019-06-20] MEDS ORDERED: MORPHINE SULF INJ 2 MG/ML SYRINGE 1ML IV PRN (09:45)
[2019-06-20] MEDS ORDERED: PROMETHAZINE HCL 25 MG/ML 1ML IV PRN (09:45)
[2019-06-20] MEDS ORDERED: LACTULOSE 20Gm/30ML SOLN PO PRN (09:45)
[2019-06-20] MEDS ORDERED: ALBUTEROL SULF 2.5 MG/0.5ML(0.5%) NEB SOLN NEB PRN (09:45)
[2019-06-20] MEDS ORDERED: ACETAMINOPHEN 500 MG TAB PO PRN (09:45)
[2019-06-20] MEDS ORDERED: NITROGLYCERIN 0.4 MG SL TAB SL PRN (09:45)
[2019-06-20] MEDS ORDERED: ENALAPRIL MALEATE 2.5 MG TAB PO SCH (10:00)
[2019-06-20] MEDS ORDERED: FUROSEMIDE 40 MG/4 ML VIAL IV SCH (10:00)
[2019-06-20] MEDS ORDERED: CARVEDILOL 3.125 MG TAB PO SCH ×2 (10:00)
[2019-06-20] MEDS: ASPirin 81 mg TAB PO SCH (10:36)
[2019-06-20] MEDS: POTASSIUM CHL 20 Meq TABLET PO SCH (10:37)
[2019-06-20] MEDS: MONTELUKAST SODIUM 10 MG TAB PO SCH (10:38)
[2019-06-20] MEDS: ENOXAPARIN SOD 40 MG/0.4 ML SYRINGE SC SCH (10:41)
[2019-06-20] MEDS: NITROGLYCERIN 0.2MG/HR TOPICAL PATCH TD SCH (10:46)
[2019-06-20 12:30] LABS: CRP High Sensitivity 0.856 mg/dL (< 0.3)
[2019-06-20] MEDS: IPRATROPIUM BROM 0.5 MG/2.5ML INH SOL NEB SCH ×2 (13:03→19:09)
[2019-06-20] MEDS: ALBUTEROL SULF 2.5 MG/0.5ML(0.5%) NEB SOLN NEB SCH ×2 (13:03→19:09)
[2019-06-20 13:10] VITALS: BP 135/71
[2019-06-20] MEDS: SODIUM CHLOR 0.9% PF (SALINE LOCK) 10ML VIAL/SYR IV SCH ×2 (14:00→22:10)
[2019-06-20 15:48] VITALS: BP 136/71
[2019-06-20 17:00] VITALS: BP 107/51
[2019-06-20 22:00] VITALS: BP 121/51
[2019-06-20] MEDS: ATORVASTATIN 20 MG TAB PO SCH (22:10)
[2019-06-20] MEDS: FUROSEMIDE 40 MG/4 ML VIAL IV SCH (22:10)
[2019-06-20] MEDS: METOPROLOL SUCCINATE XL 50 MG TAB PO SCH (22:11)
[2019-06-20] MEDS: traMADol HCL 50 MG TAB PO PRN (22:27)
[2019-06-21] VITALS (7 sets, daily range): BP systolic 118–134; BP diastolic 63–76
[2019-06-21] MEDS: IPRATROPIUM BROM 0.5 MG/2.5ML INH SOL NEB SCH ×4 (00:47→18:33)
[2019-06-21] MEDS: ALBUTEROL SULF 2.5 MG/0.5ML(0.5%) NEB SOLN NEB SCH ×4 (00:47→18:33)
[2019-06-21] MEDS: SODIUM CHLOR 0.9% PF (SALINE LOCK) 10ML VIAL/SYR IV SCH ×3 (05:17→22:00)
[2019-06-21 07:42] LABS: Cholesterol 133 mg/dL (< 200); HDL Cholesterol 34 mg/dL (40-59); LDL Cholesterol 90 mg/dL (< 100); Triglycerides 101 mg/dL (< 150)
[2019-06-21] MEDS: ASPirin 81 mg TAB PO SCH (10:11)
[2019-06-21] MEDS: POTASSIUM CHL 20 Meq TABLET PO SCH (10:11)
[2019-06-21] MEDS: traMADol HCL 50 MG TAB PO PRN ×2 (10:11→21:06)
[2019-06-21] MEDS: MONTELUKAST SODIUM 10 MG TAB PO SCH (10:12)
[2019-06-21] MEDS: ENOXAPARIN SOD 40 MG/0.4 ML SYRINGE SC SCH (10:14)
[2019-06-21] MEDS: NITROGLYCERIN 0.2MG/HR TOPICAL PATCH TD SCH (10:14)
[2019-06-21] MEDS: FUROSEMIDE 40 MG/4 ML VIAL IV SCH ×2 (10:15→22:41)
[2019-06-21] MEDS ORDERED: OPTISON 3ml Vial for INJ IV ONE (11:13)
[2019-06-21] MEDS: SACUBITRIL-VALSARTAN 24mg/26mg TAB PO SCH (22:41)
[2019-06-21] MEDS: ATORVASTATIN 20 MG TAB PO SCH (22:41)
[2019-06-21] MEDS: METOPROLOL SUCCINATE XL 50 MG TAB PO SCH (22:41)
[2019-06-22] MEDS: ALBUTEROL SULF 2.5 MG/0.5ML(0.5%) NEB SOLN NEB SCH ×4 (00:25→19:01)
[2019-06-22] MEDS: IPRATROPIUM BROM 0.5 MG/2.5ML INH SOL NEB SCH ×4 (00:25→19:01)
[2019-06-22] MEDS: SODIUM CHLOR 0.9% PF (SALINE LOCK) 10ML VIAL/SYR IV SCH ×3 (05:14→22:13)
[2019-06-22 05:45] LABS: Alcohol, Urine < 3.0 mg/dL (0-5); Amphetamine Screen, Urine NEGATIVE (NEGATIVE); Barbiturate Scree,Urine NEGATIVE (NEGATIVE); Benzodiazephine Screen, Urine NEGATIVE (NEGATIVE); Cannabinoid Screen, Urine NEGATIVE (NEGATIVE); Cocaine Screen, Urine NEGATIVE (NEGATIVE); Opiate Scree,Urine NEGATIVE (NEGATIVE); Phencyclidine Screen, Urine NEGATIVE (NEGATIVE)
[2019-06-22 06:07] VITALS: BP 117/67
[2019-06-22 06:36] LABS: Potassium 3.7 mmol/L (3.5-5.1)
[2019-06-22 06:45] LABS: BUN/Creatinine Ratio 15.5; Calcium 9.3 mg/dL (8.5-10.1)
[2019-06-22 07:38] VITALS: BP 116/72
[2019-06-22 08:38] VITALS: BP 116/72
[2019-06-22] MEDS: POTASSIUM CHL 20 Meq TABLET PO SCH (09:54)
[2019-06-22] MEDS: ASPirin 81 mg TAB PO SCH (09:54)
[2019-06-22] MEDS: ENOXAPARIN SOD 40 MG/0.4 ML SYRINGE SC SCH (09:54)
[2019-06-22] MEDS: MONTELUKAST SODIUM 10 MG TAB PO SCH (09:54)
[2019-06-22] MEDS: SACUBITRIL-VALSARTAN 24mg/26mg TAB PO SCH ×2 (09:55→22:13)
[2019-06-22] MEDS: FUROSEMIDE 40 MG/4 ML VIAL IV SCH ×2 (09:57→22:13)
[2019-06-22] MEDS: NITROGLYCERIN 0.2MG/HR TOPICAL PATCH TD SCH (09:58)
[2019-06-22 13:00] VITALS: BP 96/60
[2019-06-22] MEDS ORDERED: SACU1TAB PO (14:32)
[2019-06-22] MEDS ORDERED: METO-6 PO (14:32)
[2019-06-22 17:50] VITALS: BP 100/62
[2019-06-22] MEDS: ATORVASTATIN 20 MG TAB PO SCH (22:14)
[2019-06-22] MEDS: METOPROLOL SUCCINATE XL 50 MG TAB PO SCH (22:23)
[2019-06-22 22:54] VITALS: BP 101/72
[2019-06-23] MEDS: IPRATROPIUM BROM 0.5 MG/2.5ML INH SOL NEB SCH ×4 (00:04→18:39)
[2019-06-23] MEDS: ALBUTEROL SULF 2.5 MG/0.5ML(0.5%) NEB SOLN NEB SCH ×4 (00:04→18:40)
[2019-06-23] MEDS: SODIUM CHLOR 0.9% PF (SALINE LOCK) 10ML VIAL/SYR IV SCH ×2 (05:06→13:41)
[2019-06-23 05:07] VITALS: BP 112/57
[2019-06-23 07:05] LABS: Calcium 9.3 mg/dL (8.5-10.1)
[2019-06-23 09:00] VITALS: BP 104/53
[2019-06-23] MEDS: MONTELUKAST SODIUM 10 MG TAB PO SCH (09:53)
[2019-06-23] MEDS: POTASSIUM CHL 20 Meq TABLET PO SCH (09:53)
[2019-06-23] MEDS: SACUBITRIL-VALSARTAN 24mg/26mg TAB PO SCH (09:53)
[2019-06-23] MEDS: ENOXAPARIN SOD 40 MG/0.4 ML SYRINGE SC SCH (09:54)
[2019-06-23] MEDS: ASPirin 81 mg TAB PO SCH (09:54)
[2019-06-23] MEDS: FUROSEMIDE 40 MG/4 ML VIAL IV SCH (09:55)
[2019-06-23 12:35] VITALS: BP 104/53
[2019-06-23 13:00] VITALS: BP 104/60
[2019-06-23 17:00] VITALS: BP 100/55
[2019-06-23 18:45] VITALS: BP 100/55
== END 2019-06-23 20:30 | disposition home or self-care (01) | DRG 194 ==
LOC: ER 00:58 → TELE 00:59 → TELE-EAST 10:50
PROVIDERS: ADMIT Internal Medicine; ATTEND Internal Medicine
DX: I13.0 Hypertensive heart and chronic kidney disease with heart failure and stage 1 through stage 4 chronic kidney disease, or unspecified chronic kidney disease (principal); I27.20 Pulmonary hypertension, unspecified; E66.01 Morbid (severe) obesity due to excess calories; I42.9 Cardiomyopathy, unspecified; Z68.42 Body mass index [BMI] 45.0-49.9, adult; I50.43 Acute on chronic combined systolic (congestive) and diastolic (congestive) heart failure; D63.8 Anemia in other chronic diseases classified elsewhere; N18.9 Chronic kidney disease, unspecified; H40.9 Unspecified glaucoma; J45.909 Unspecified asthma, uncomplicated; Z80.3 Family history of malignant neoplasm of breast; Z82.49 Family history of ischemic heart disease and other diseases of the circulatory system; Z87.891 Personal history of nicotine dependence; Z79.899 Other long term (current) drug therapy; Z79.82 Long term (current) use of aspirin
CPT/HCPCS: 36415; 71045; 71046; 80048; 80053; 80061; 80307; 82550; 83735; 83880; 84484; 85025; 85379; 85610; 85652; 85730; 86141; 93005; 93306; 94640; G0378; Q9956

== ENCOUNTER 2019-10-25 12:51 | Inpatient (IN) | payer MEDICAID ==
[~2019-10-25] VITALS: Ht 185.4 cm; Wt 156.0 kg
[~2019-10-25 12:51] MED LIST changes: -CARV6.25 PO; -IBUP600T27 PO; +METO-6 PO; +SACU1TAB PO
[2019-10-25 13:46] LABS: Basophils # (auto) 0.1 10 ^3/uL (0-0.2); Eosinophils # (auto) 0.7 10 ^3/uL (0-0.8); Hemoglobin 12.1 g/dL (13.5-17.5); Lymphocytes # (auto) 1.7 10 ^3/uL (0.4-5.4); Neutrophils # (auto) 3.6 10 ^3/uL (1.6-8.6); Nucleated Red Blood Cells % 0.1 %; White Blood Cell 6.7 10^3/uL (4.4-10.8)
[2019-10-25 13:47] LABS: Basophils % (auto) 1.3 % (0.0-2.0); Eosinophils % (auto) 10.1 % (0.0-7.0); Hematocrit 38.7 % (41.0-53.0); Lymphocytes % (auto) 25.8 % (10.0-50.0); Mean Corpuscular Hemoglobin 21.4 pg (28.0-32.0); Mean Corpuscular Hgb Conc. 31.4 g/dL (32.0-36.0); Monocytes # (auto) 0.6 10 ^3/uL (0-1.3); Monocytes % (auto) 9.5 % (0.0-12.0); Neutrophils % (auto) 53.3 % (37.0-80.0); Platelet Count (auto) 215 10^3/uL (140-450); Red Blood Cells 5.68 10^6/uL (4.5-5.90); Red Cell Distribution Width 19.6 % (11.8-14.3)
[2019-10-25 14:00] LABS: INR 1.2 (0.9-1.15); Partial Thromboplastin Time 25.9 sec (23.64-32.05)
[2019-10-25 14:02] LABS: Albumin 3.4 g/dL (3.4-5.0); Potassium 3.7 mmol/L (3.5-5.1)
[2019-10-25 14:08] LABS: BUN/Creatinine Ratio 14.8; Bilirubin, Total 1.6 mg/dL (0.2-1.0); Total Protein 7.1 g/dL (6.4-8.2)
[2019-10-25] MEDS ORDERED: ASPirin-EC 81 mg tab PO ONE (17:45)
[2019-10-25] MEDS ORDERED: ONDANSETRON HCL 4 MG/2 ML VIAL IV PRN (17:45)
[2019-10-25] MEDS ORDERED: ACETAMINOPHEN 500 MG TAB PO PRN (17:45)
[2019-10-25] MEDS ORDERED: MORPHINE SULF INJ 2 MG/ML SYRINGE 1ML IV PRN ×2 (17:45)
[2019-10-25] MEDS ORDERED: FUROSEMIDE 40 MG/4 ML VIAL IV ONE (17:45)
[2019-10-25] MEDS ORDERED: hydrALAZINE HCL 20 MG/ML VL IV PRN (17:45)
[2019-10-25] MEDS ORDERED: NITROGLYCERIN 0.4 MG SL TAB SL PRN (17:45)
[2019-10-25 19:00] LABS: Urine Bacteria NONE SEEN /hpf (None Seen); Urine Blood Negative /uL (Negative); Urine Specific Gravity 1.009 (1.001-1.035); Urine WBC 1 /hpf (0 - 3)
[2019-10-25 21:41] VITALS: BP 126/75
[2019-10-25] MEDS: ATORVASTATIN 20 MG TAB PO SCH (22:02)
[2019-10-25] MEDS: METOPROLOL TARTRATE 25 MG TAB PO SCH (22:02)
[2019-10-26 05:00] VITALS: BP 121/79
[2019-10-26 05:36] LABS: Basophils # (auto) 0.1 10 ^3/uL (0-0.2); Eosinophils # (auto) 0.7 10 ^3/uL (0-0.8); Lymphocytes # (auto) 1.5 10 ^3/uL (0.4-5.4); Monocytes # (auto) 0.5 10 ^3/uL (0-1.3); Neutrophils # (auto) 3.2 10 ^3/uL (1.6-8.6)
[2019-10-26 05:38] LABS: Basophils % (auto) 1.8 % (0.0-2.0); Eosinophils % (auto) 11.6 % (0.0-7.0); Hematocrit 38.3 % (41.0-53.0); Hemoglobin 12.1 g/dL (13.5-17.5); Lymphocytes % (auto) 25.4 % (10.0-50.0); Mean Corpuscular Hemoglobin 21.7 pg (28.0-32.0); Mean Corpuscular Hgb Conc. 31.6 g/dL (32.0-36.0); Mean Corpuscular Volume 68.7 fL (80.0-100.0); Monocytes % (auto) 8.5 % (0.0-12.0); Neutrophils % (auto) 52.7 % (37.0-80.0); Nucleated Red Blood Cells % 0.2 %; Platelet Count (auto) 204 10^3/uL (140-450); Red Blood Cells 5.58 10^6/uL (4.5-5.90); Red Cell Distribution Width 19.6 % (11.8-14.3); White Blood Cell 6.1 10^3/uL (4.4-10.8)
[2019-10-26 05:56] LABS: BUN/Creatinine Ratio 19.8; Calcium 8.1 mg/dL (8.5-10.1); Potassium 3.8 mmol/L (3.5-5.1)
[2019-10-26] MEDS: ASPirin-EC 81 mg tab PO SCH (08:50)
[2019-10-26] MEDS: FAMOTIDINE 20 MG TAB PO SCH (08:50)
[2019-10-26] MEDS: POTASSIUM CHL 20 Meq TABLET PO SCH (08:51)
[2019-10-26] MEDS: METOPROLOL TARTRATE 25 MG TAB PO SCH ×2 (08:51→21:44)
[2019-10-26] MEDS: FUROSEMIDE 40 MG/4 ML VIAL IV SCH (08:51)
[2019-10-26] MEDS: LISINOPRIL 10 MG TAB PO SCH (08:52)
[2019-10-26 09:00] VITALS: BP 117/54
[2019-10-26] MEDS ORDERED: PNEUMOCOCCAL VACC POLYS 25 MCG/0.5 ML VIAL IM ONE (09:00)
[2019-10-26 12:57] VITALS: BP 103/54
[2019-10-26] MEDS ORDERED: OPTISON 3ml Vial for INJ IV ONE (15:24)
[2019-10-26 16:46] VITALS: BP 123/56
[2019-10-26] MEDS: MONTELUKAST SODIUM 10 MG TAB PO SCH (21:43)
[2019-10-26] MEDS: ATORVASTATIN 20 MG TAB PO SCH (21:43)
[2019-10-26 22:00] VITALS: BP 117/55
[2019-10-27 05:00] VITALS: BP 104/53
[2019-10-27 06:00] LABS: Calcium 8.6 mg/dL (8.5-10.1); Potassium 4.1 mmol/L (3.5-5.1)
[2019-10-27 08:44] VITALS: BP 114/77
[2019-10-27] MEDS: FUROSEMIDE 40 MG/4 ML VIAL IV SCH (08:51)
[2019-10-27] MEDS: FAMOTIDINE 20 MG TAB PO SCH (08:51)
[2019-10-27] MEDS: POTASSIUM CHL 20 Meq TABLET PO SCH (08:52)
[2019-10-27] MEDS: LISINOPRIL 10 MG TAB PO SCH (08:52)
[2019-10-27] MEDS: METOPROLOL TARTRATE 25 MG TAB PO SCH ×2 (08:52→21:44)
[2019-10-27] MEDS: ASPirin-EC 81 mg tab PO SCH (08:52)
[2019-10-27 12:33] VITALS: BP 99/69
[2019-10-27] MEDS: HYDROcodone-ACET 5/325MG TAB PO PRN (14:27)
[2019-10-27 16:34] VITALS: BP 127/61
[2019-10-27] MEDS: ALBUTEROL SULF 2.5 MG/0.5ML(0.5%) NEB SOLN NEB SCH (19:01)
[2019-10-27] MEDS: IPRATROPIUM BROM 0.5 MG/2.5ML INH SOL NEB SCH (19:01)
[2019-10-27 20:54] VITALS: BP 127/61
[2019-10-27] MEDS: ATORVASTATIN 20 MG TAB PO SCH (21:43)
[2019-10-27] MEDS: MONTELUKAST SODIUM 10 MG TAB PO SCH (21:44)
[2019-10-27 22:00] VITALS: BP 100/66
[2019-10-28 05:00] VITALS: BP 136/67
[2019-10-28] MEDS: ALBUTEROL SULF 2.5 MG/0.5ML(0.5%) NEB SOLN NEB SCH ×3 (06:22→18:29)
[2019-10-28] MEDS: IPRATROPIUM BROM 0.5 MG/2.5ML INH SOL NEB SCH ×3 (06:23→18:29)
[2019-10-28 09:00] VITALS: BP 130/71
[2019-10-28] MEDS: FUROSEMIDE 40 MG/4 ML VIAL IV SCH (11:11)
[2019-10-28] MEDS: FAMOTIDINE 20 MG TAB PO SCH (11:12)
[2019-10-28] MEDS: POTASSIUM CHL 20 Meq TABLET PO SCH (11:13)
[2019-10-28] MEDS: METOPROLOL TARTRATE 25 MG TAB PO SCH ×2 (11:13→21:37)
[2019-10-28] MEDS: LISINOPRIL 10 MG TAB PO SCH (11:14)
[2019-10-28] MEDS: ASPirin-EC 81 mg tab PO SCH (11:15)
[2019-10-28 13:00] VITALS: BP 129/67
[2019-10-28] MEDS ORDERED: HEPARIN SODIUM (PORCINE) 5000 UNITS/ML 1ML VIAL ONE (13:17)
[2019-10-28] MEDS ORDERED: ANGIOMAX 250 MG VIAL IV ONE (13:17)
[2019-10-28] MEDS ORDERED: SODIUM CHL 0.9% 0 ML ONE (13:18)
[2019-10-28] MEDS ORDERED: VERAPAMIL 2.5MG/ML INJ 2ML VIAL IV ONE (13:18)
[2019-10-28] MEDS ORDERED: LIDOCAINE 2%HCL (LOCAL ANESTH.) INJ 20ML MDV ONE (13:18)
[2019-10-28] MEDS ORDERED: fentaNYL CITRATE 100 MCG/2 ML VL ONE ×2 (13:18→13:57)
[2019-10-28] MEDS ORDERED: IODIXANOL 320MG/ML 100ML BTL IV ONE (13:18)
[2019-10-28] MEDS ORDERED: MIDAZOLAM HCL 1MG/1ML-2 ML VIAL ONE (13:18)
[2019-10-28 16:35] VITALS: BP 113/59
[2019-10-28] MEDS ORDERED: SODIUM CHLORIDE 0.9% 1,000 ML IV SCH (21:00)
[2019-10-28] MEDS: ATORVASTATIN 20 MG TAB PO SCH (21:36)
[2019-10-28] MEDS: MONTELUKAST SODIUM 10 MG TAB PO SCH (21:38)
[2019-10-28 22:00] VITALS: BP 109/65
[2019-10-29] VITALS (11 sets, daily range): BP systolic 110–130; BP diastolic 50–79
[2019-10-29] MEDS: IPRATROPIUM BROM 0.5 MG/2.5ML INH SOL NEB SCH ×3 (05:46→19:01)
[2019-10-29] MEDS: ALBUTEROL SULF 2.5 MG/0.5ML(0.5%) NEB SOLN NEB SCH ×3 (05:46→19:01)
[2019-10-29 06:32] LABS: Basophils # (auto) 0.1 10 ^3/uL (0-0.2); Eosinophils # (auto) 0.7 10 ^3/uL (0-0.8); Eosinophils % (auto) 8.8 % (0.0-7.0); Hematocrit 41.1 % (41.0-53.0); Hemoglobin 12.8 g/dL (13.5-17.5); Lymphocytes # (auto) 1.2 10 ^3/uL (0.4-5.4); Lymphocytes % (auto) 15.7 % (10.0-50.0); Mean Corpuscular Hemoglobin 21.4 pg (28.0-32.0); Mean Corpuscular Hgb Conc. 31.2 g/dL (32.0-36.0); Mean Corpuscular Volume 68.6 fL (80.0-100.0); Monocytes # (auto) 0.7 10 ^3/uL (0-1.3); Monocytes % (auto) 9.2 % (0.0-12.0); Neutrophils % (auto) 65.3 % (37.0-80.0); Nucleated Red Blood Cells % 0.1 %; Platelet Count (auto) 206 10^3/uL (140-450); Red Blood Cells 5.99 10^6/uL (4.5-5.90); Red Cell Distribution Width 19.3 % (11.8-14.3); White Blood Cell 7.7 10^3/uL (4.4-10.8)
[2019-10-29 06:59] LABS: INR 1.28 (0.9-1.15); Partial Thromboplastin Time 27.7 sec (23.64-32.05)
[2019-10-29 07:00] LABS: Albumin 3.8 g/dL (3.4-5.0); Calcium 8.8 mg/dL (8.5-10.1); Potassium 4.4 mmol/L (3.5-5.1)
[2019-10-29 07:03] LABS: BUN/Creatinine Ratio 21.5; Bilirubin, Total 2.7 mg/dL (0.2-1.0); Total Protein 7.4 g/dL (6.4-8.2)
[2019-10-29] MEDS ORDERED: LIDOCAINE 2%HCL (LOCAL ANESTH.) INJ 20ML MDV ONE (07:19)
[2019-10-29] MEDS ORDERED: BACITRACIN INJ 50000 UNIT VIAL ONE (07:30)
[2019-10-29] MEDS ORDERED: VANCOMYCIN 1GM/250ML 250 ML IV ONE ×2 (07:30→07:36)
[2019-10-29] MEDS ORDERED: VANCOMYCIN HCL 1000 MG VL ONE (07:30)
[2019-10-29] MEDS ORDERED: MIDAZOLAM HCL 1MG/1ML-2 ML VIAL ONE (07:55)
[2019-10-29] MEDS ORDERED: fentaNYL CITRATE 100 MCG/2 ML VL ONE (07:55)
[2019-10-29] MEDS: FAMOTIDINE 20 MG TAB PO SCH (11:01)
[2019-10-29] MEDS: ASPirin-EC 81 mg tab PO SCH (11:01)
[2019-10-29] MEDS: LISINOPRIL 10 MG TAB PO SCH (11:02)
[2019-10-29] MEDS: DOXYCYCLINE 100 MG TAB/CAP PO SCH ×2 (11:03→22:49)
[2019-10-29] MEDS: METOPROLOL TARTRATE 25 MG TAB PO SCH ×2 (11:03→22:49)
[2019-10-29] MEDS: POTASSIUM CHL 20 Meq TABLET PO SCH (11:03)
[2019-10-29] MEDS: MONTELUKAST SODIUM 10 MG TAB PO SCH (22:47)
[2019-10-29] MEDS: ATORVASTATIN 20 MG TAB PO SCH (22:48)
[2019-10-29] MEDS: HYDROcodone-ACET 5/325MG TAB PO PRN (22:51)
[2019-10-30 05:00] VITALS: BP 138/83
[2019-10-30] MEDS: ALBUTEROL SULF 2.5 MG/0.5ML(0.5%) NEB SOLN NEB SCH ×2 (06:44→12:16)
[2019-10-30] MEDS: IPRATROPIUM BROM 0.5 MG/2.5ML INH SOL NEB SCH ×2 (06:44→12:16)
[2019-10-30] MEDS: HYDROcodone-ACET 5/325MG TAB PO PRN (07:07)
[2019-10-30 09:00] VITALS: BP 116/53
[2019-10-30] MEDS: ASPirin-EC 81 mg tab PO SCH (09:34)
[2019-10-30] MEDS: METOPROLOL TARTRATE 25 MG TAB PO SCH (09:35)
[2019-10-30] MEDS: DOXYCYCLINE 100 MG TAB/CAP PO SCH (09:35)
[2019-10-30] MEDS: FAMOTIDINE 20 MG TAB PO SCH (09:35)
[2019-10-30] MEDS: POTASSIUM CHL 20 Meq TABLET PO SCH (09:35)
[2019-10-30] MEDS: LISINOPRIL 10 MG TAB PO SCH (09:36)
[2019-10-30] MEDS ORDERED: FUROSEMIDE 40 MG TAB PO SCH (10:00)
[2019-10-30 12:04] VITALS: BP 118/61
[2019-10-30 13:00] VITALS: BP 120/70
== END 2019-10-30 15:20 | disposition home or self-care (01) | DRG 192 ==
LOC: ER 12:51 → TELE 12:52 → TELE-WESTW 19:53
PROVIDERS: ADMIT Nurse Practitioner Acute Care; ATTEND Internal Medicine
PROC: 4A023N7 Measurement of Cardiac Sampling and Pressure, Left Heart, Percutaneous Approach (ICD-10-PCS; principal; 2019-10-28)
PROC: B211YZZ Fluoroscopy of Multiple Coronary Arteries using Other Contrast (ICD-10-PCS; 2019-10-28)
PROC: B215YZZ Fluoroscopy of Left Heart using Other Contrast (ICD-10-PCS; 2019-10-28)
PROC: 0WJ83ZZ Inspection of Chest Wall, Percutaneous Approach (ICD-10-PCS; 2019-10-29)
PROC: B5171ZZ Fluoroscopy of Left Subclavian Vein using Low Osmolar Contrast (ICD-10-PCS; 2019-10-29)
DX: I11.0 Hypertensive heart disease with heart failure (principal); I42.8 Other cardiomyopathies; E66.01 Morbid (severe) obesity due to excess calories; Z68.42 Body mass index [BMI] 45.0-49.9, adult; J45.909 Unspecified asthma, uncomplicated; Z53.9 Procedure and treatment not carried out, unspecified reason; D50.9 Iron deficiency anemia, unspecified; Z82.49 Family history of ischemic heart disease and other diseases of the circulatory system; Z79.899 Other long term (current) drug therapy; Z80.0 Family history of malignant neoplasm of digestive organs; Z80.3 Family history of malignant neoplasm of breast; Z83.3 Family history of diabetes mellitus; I50.23 Acute on chronic systolic (congestive) heart failure
CPT/HCPCS: 36415; 71045; 71046; 80048; 80053; 81001; 83880; 84484; 85025; 85610; 85730; 86141; 86850; 86900; 86901; 93005; 93306; 93458; 94640; 96374; 99152; 99153; G0378; J2250; Q9956; Q9967

== ENCOUNTER 2020-05-17 06:18 | Inpatient (IN) | payer MEDICAID ==
[~2020-05-17] VITALS: Ht 185.4 cm; Wt 143.4 kg
[2020-05-17] MEDS ORDERED: FUROSEMIDE 40 MG/4 ML VIAL IV ONE ×2 (07:15→10:15)
[2020-05-17 08:19] LABS: Albumin 3.2 g/dL (3.4-5.0); Basophils # (auto) 0.1 10 ^3/uL (0-0.2); Calcium 8.5 mg/dL (8.5-10.1); Eosinophils # (auto) 0.4 10 ^3/uL (0-0.8); Monocytes # (auto) 0.9 10 ^3/uL (0-1.3); Monocytes % (auto) 10.7 % (0.0-12.0); Neutrophils # (auto) 5.1 10 ^3/uL (1.6-8.6); Potassium 3.5 mmol/L (3.5-5.1)
[2020-05-17 08:22] LABS: Basophils % (auto) 1.1 % (0.0-2.0); Eosinophils % (auto) 4.9 % (0.0-7.0); Hematocrit 33.2 % (41.0-53.0); Lymphocytes # (auto) 1.5 10 ^3/uL (0.4-5.4); Mean Corpuscular Hemoglobin 18.2 pg (28.0-32.0); Mean Corpuscular Volume 60.6 fL (80.0-100.0); Neutrophils % (auto) 64.3 % (37.0-80.0); Nucleated Red Blood Cells % 1.3 %; Platelet Count (auto) 370 10^3/uL (140-450); Red Blood Cells 5.48 10^6/uL (4.5-5.90)
[2020-05-17 08:25] LABS: BUN/Creatinine Ratio 17.4; Bilirubin, Total 2.4 mg/dL (0.2-1.0); Total Protein 6.9 g/dL (6.4-8.2)
[2020-05-17 08:35] LABS: INR 1.33 (0.9-1.15); Partial Thromboplastin Time 27.6 sec (23.0-31.2)
[2020-05-17] MEDS ORDERED: LORazepam 0.5 MG TAB PO PRN (11:00)
[2020-05-17] MEDS ORDERED: ONDANSETRON HCL 4 MG/2 ML VIAL IV PRN (11:00)
[2020-05-17] MEDS ORDERED: MORPHINE SULF INJ 2 MG/ML SYRINGE 1ML IV PRN ×2 (11:00)
[2020-05-17] MEDS ORDERED: ACETAMINOPHEN 500 MG TAB PO PRN (11:00)
[2020-05-17] MEDS ORDERED: REMDESIVIR PER PHARMACY 0 ML IV SCH (11:00)
[2020-05-17] MEDS ORDERED: SPIRONOLACTONE 25 MG TAB PO ONE (11:00)
[2020-05-17] MEDS ORDERED: NITROGLYCERIN 0.4 MG SL TAB SL PRN ×2 (11:00)
[2020-05-17] MEDS ORDERED: POTASSIUM CHL 10 Meq TABLET PO ONE (11:00)
[2020-05-17] MEDS ORDERED: ALUM & MAG HYDROX-SIMETH LIQ(MAALOX) 30 ML PO PRN (11:00)
[2020-05-17] MEDS ORDERED: DOCUSATE SOD 100 MG CAP PO PRN (11:00)
[2020-05-17] MEDS ORDERED: SACU1TAB PO (11:05)
[2020-05-17] MEDS ORDERED: ASPI-498 PO (11:05)
[2020-05-17] MEDS ORDERED: FLUT45AE2 IN (11:06)
[2020-05-17] MEDS ORDERED: POTA8TAB2 PO (11:09)
[2020-05-17 11:52] LABS: Basophils # (auto) 0.1 10 ^3/uL (0-0.2); Basophils % (auto) 1.4 % (0.0-2.0); Eosinophils # (auto) 0.4 10 ^3/uL (0-0.8); Eosinophils % (auto) 5.5 % (0.0-7.0); Hematocrit 34.1 % (41.0-53.0); Hemoglobin 10.4 g/dL (13.5-17.5); Lymphocytes # (auto) 1.4 10 ^3/uL (0.4-5.4); Lymphocytes % (auto) 18.2 % (10.0-50.0); Mean Corpuscular Hemoglobin 18.4 pg (28.0-32.0); Mean Corpuscular Hgb Conc. 30.6 g/dL (32.0-36.0); Mean Corpuscular Volume 60.2 fL (80.0-100.0); Monocytes # (auto) 0.7 10 ^3/uL (0-1.3); Monocytes % (auto) 9.5 % (0.0-12.0); Neutrophils # (auto) 5.1 10 ^3/uL (1.6-8.6); Neutrophils % (auto) 65.4 % (37.0-80.0); Nucleated Red Blood Cells % 1.3 %; Platelet Count (auto) 387 10^3/uL (140-450); Red Blood Cells 5.66 10^6/uL (4.5-5.90); Red Cell Distribution Width 20.9 % (11.8-14.3); White Blood Cell 7.8 10^3/uL (4.4-10.8)
[2020-05-17 12:01] LABS: Albumin 3.4 g/dL (3.4-5.0); BUN/Creatinine Ratio 17.4; Calcium 9.1 mg/dL (8.5-10.1); Magnesium 2.4 mg/dL (1.6-2.6); Potassium 3.5 mmol/L (3.5-5.1)
[2020-05-17 12:10] LABS: Bilirubin, Total 2.8 mg/dL (0.2-1.0); CRP High Sensitivity 3.72 mg/dL (< 0.3); Total Protein 7.1 g/dL (6.4-8.2)
[2020-05-17] MEDS ORDERED: REMDESIVIR 200 MG in NS 210ml LOADING DOSE ADULT IV ONE (15:00)
[2020-05-17] MEDS: FUROSEMIDE 40 MG/4 ML VIAL IV SCH (18:23)
[2020-05-17] MEDS: ALBUTEROL SULF HFA 90MCG INH 200DOSE IN PRN (19:19)
[2020-05-17] MEDS: BUDESONIDE (INHALATION) 180 MCG IH IN SCH (19:19)
--- NOTE | 2020-05-17 21:41 | NUR ---
Telemetry admit from ER CASEY OBREGON admitted to Telemetry unit after SBAR received. Patient oriented to VIRGEN PÉREZ RN primary RN, unit, room, bed, and unit policies regarding patient care and visiting hours. Patient now on continuous telemetry monitoring, tele box # 69 and telemetry reading on arrival to unit is Sinus Rhythm at 84BPM. Patient placed on bedside oxygen, weighed by bedscale and encouraged to call if they need something. All questions and concerns addressed, patient verbalized understanding.
[2020-05-17] MEDS: SACUBITRIL-VALSARTAN 24mg/26mg TAB PO SCH (23:00)
[2020-05-17] MEDS: DOXYCYCLINE 100MG/250ML 250 ML IV SCH (23:00)
[2020-05-17] MEDS: ATORVASTATIN 20 MG TAB PO SCH (23:01)
[2020-05-17] MEDS: ENOXAPARIN SOD 40 MG/0.4 ML SYRINGE SC SCH (23:01)
[2020-05-17] MEDS: METOPROLOL SUCCINATE XL 50 MG TAB PO SCH (23:01)
[2020-05-18] MEDS: HYDROcodone-ACET 5/325MG TAB PO PRN ×3 (00:05→22:46)
[2020-05-18 00:24] VITALS: BP 104/59
[2020-05-18] MEDS ORDERED: INFLUENZA QUAD 2020-2021 0.5 ML SYRG IM SCH (02:00)
--- NOTE | 2020-05-18 05:19 | NUR ---
Influenza A&B swab sent to lab.
[2020-05-18] MEDS: FUROSEMIDE 40 MG/4 ML VIAL IV SCH ×2 (05:43→18:24)
[2020-05-18 06:28] VITALS: BP 111/55
[2020-05-18 07:26] LABS: Basophils # (auto) 0.1 10 ^3/uL (0-0.2); Eosinophils # (auto) 0.4 10 ^3/uL (0-0.8); Hematocrit 33.9 % (41.0-53.0); Lymphocytes # (auto) 0.9 10 ^3/uL (0.4-5.4); Mean Corpuscular Volume 61.2 fL (80.0-100.0); Neutrophils # (auto) 6.2 10 ^3/uL (1.6-8.6)
[2020-05-18 07:29] LABS: Basophils % (auto) 1.1 % (0.0-2.0); Eosinophils % (auto) 4.2 % (0.0-7.0); Lymphocytes % (auto) 10.1 % (10.0-50.0); Mean Corpuscular Hgb Conc. 29.4 g/dL (32.0-36.0); Monocytes % (auto) 11.4 % (0.0-12.0); Neutrophils % (auto) 73.2 % (37.0-80.0); Nucleated Red Blood Cells % 1.2 %; Platelet Count (auto) 374 10^3/uL (140-450); Red Blood Cells 5.54 10^6/uL (4.5-5.90); Red Cell Distribution Width 20.7 % (11.8-14.3); White Blood Cell 8.5 10^3/uL (4.4-10.8)
[2020-05-18 07:31] LABS: Potassium 3.8 mmol/L (3.5-5.1)
[2020-05-18 07:42] LABS: Albumin 3.4 g/dL (3.4-5.0); BUN/Creatinine Ratio 18.6; Bilirubin, Total 3.1 mg/dL (0.2-1.0); Calcium 9.1 mg/dL (8.5-10.1); Total Protein 7.1 g/dL (6.4-8.2)
[2020-05-18 08:00] VITALS: BP 111/55
--- NOTE | 2020-05-18 08:00 | NUR ---
ASSESSMENT NOTE PT IS ALERT ORIENTED X4, RESTING IN BED COMFORTABLY, ABLE TO SELF REPOSITION AND VERBALIS HER DEMANDS, PT IS OBESE WITH LARGE ABDOMEN, OXYGEN 3 L NC, SAT AT 96 %, PAIN 0/10 AT THIS TIME, CONTINUE MONITORING
[2020-05-18] MEDS: DexAMETHasone SOD PHOS 10MG/1ML VIAL INJ IV SCH (09:39)
[2020-05-18] MEDS: ASPirin 81 mg TAB PO SCH (09:40)
[2020-05-18] MEDS: DOXYCYCLINE 100MG/250ML 250 ML IV SCH ×2 (09:40→22:45)
[2020-05-18] MEDS: ZINC SULFATE 220mg CAP or TAB PO SCH (09:40)
[2020-05-18] MEDS: ENOXAPARIN SOD 40 MG/0.4 ML SYRINGE SC SCH ×2 (09:41→22:47)
[2020-05-18] MEDS: MONTELUKAST SODIUM 10 MG TAB PO SCH (09:42)
[2020-05-18] MEDS: CHOLECALCIFEROL (VITD3) 2,000 UNIT CAP PO SCH (09:42)
[2020-05-18] MEDS: ASCORBIC ACID 1,000 MG TAB PO SCH (09:42)
[2020-05-18] MEDS: SPIRONOLACTONE 25 MG TAB PO SCH (09:43)
[2020-05-18] MEDS: SACUBITRIL-VALSARTAN 24mg/26mg TAB PO SCH (10:00)
[2020-05-18] MEDS ORDERED: POTASSIUM CHL 10 Meq TABLET PO SCH (10:00)
[2020-05-18] MEDS: BUDESONIDE (INHALATION) 180 MCG IH IN SCH ×2 (10:00→22:37)
--- NOTE | 2020-05-18 10:00 | NUR ---
BM PT HAS A LARGE LOOSE BM, STATED I WAS SLEEPING, I HAVE A SEIZURES> , VERIFY WITH PT IF HE WAS DIAGNOSED WITH SEIZURES, PT STATED NO, BUT I DO HAVE A SLEEPING SEIZURES>, ASSISTED PT TO GET CLEAN BY NURSE BURT, A COMPLETE BED LINEN CHANGE IS DONE
[2020-05-18] MEDS: ALBUTEROL SULF HFA 90MCG INH 200DOSE IN PRN ×2 (10:34→22:37)
--- NOTE | 2020-05-18 11:45 | NUR ---
DR WARNER IS HERE FOLLOWING UP ON PT, MADE AWARE OF PATIENT'S LOOSE BM AND HIS STATED DIAGNOSIS WITH SEIZURES, PATIENT IN THE BATHROOM AT THIS TIME, DR WARNER WILL COME BACK AGAIN FOR HER ROUNDING
[2020-05-18] MEDS: REMDESIVIR 100 MG in SODIUM CHL 0.9% 250 ML IV SCH (16:21)
--- NOTE | 2020-05-18 16:22 | NUR ---
REMEDISIVIR IV INITIATED PRE SET OF VS TAKEN
--- NOTE | 2020-05-18 17:22 | NUR ---
PT TOLERATED REMEDISIVIR WELL, NO DISTRESS NOTED, VS STABLE
--- NOTE | 2020-05-18 18:39 | NUR ---
PT CONTINUE STABLE, ABLE TO AMBULATE TO THE BATHROOM NEEDED WITH A LONG OXYGEN TUBING, A SEVERE SLEEPING APNEA STAGE 4 NOTED EVERY TIME PT LAY DOWN ON HIGH LOCO POSITION, WAKE UP PT IF NEEDED, PAIN 0/10, CALL LIGHT WITHIN REACH
--- NOTE | 2020-05-18 19:20 | NUR ---
Opening Shift Note Received report from cordelia Olivera RN. Assumed care of patient, awake and alert. No S/S of distress/SOB or pain. Instructed on POC and to call for assist PRN, will continue to monitor for changes Q1hr and PRN. Bed placed in lowest position and call light within reach.
[2020-05-18 20:00] VITALS: BP 123/77
[2020-05-18 22:00] VITALS: BP 123/77
[2020-05-18] MEDS: ATORVASTATIN 20 MG TAB PO SCH (22:45)
[2020-05-18] MEDS: METOPROLOL SUCCINATE XL 50 MG TAB PO SCH (22:47)
--- NOTE | 2020-05-19 04:00 | NUR ---
Patient did not tolerate CPAP. Patient states he is not comfortable with it. Patient continues on 3LNC saturating at 95%. No distress noted at this time.
[2020-05-19 05:00] VITALS: BP 149/86
[2020-05-19 06:16] LABS: Calcium 9.3 mg/dL (8.5-10.1); Potassium 4.6 mmol/L (3.5-5.1)
[2020-05-19 06:20] LABS: Albumin 3.7 g/dL (3.4-5.0); BUN/Creatinine Ratio 23.7
[2020-05-19 06:22] LABS: Bilirubin, Total 3.1 mg/dL (0.2-1.0); Total Protein 7.5 g/dL (6.4-8.2)
[2020-05-19] MEDS: ALBUTEROL SULF HFA 90MCG INH 200DOSE IN PRN ×2 (07:29→19:34)
[2020-05-19] MEDS: BUDESONIDE (INHALATION) 180 MCG IH IN SCH ×2 (07:29→19:34)
--- NOTE | 2020-05-19 07:29 | NUR ---
Respiratory note: PT SEEN AT THIS TIME. FOUND PATIENT OFF CPAP AND ON 3L N/C. PT STATED HE DID NOT TOLERATE CPAP MASK VERY WELL BUT IS WILLING TO DRY NASAL CRADLE TONIGHT. HR 74, RR 18, SPO2 98%.
--- NOTE | 2020-05-19 07:30 | NUR ---
Opening Shift Note Assumed care of patient, awake and alert. No signs of distress or pain noted. Patient on 3 L Nasal Cannula. Respirations even and unlabored. Instructed patient on the use of the call light PRN. Call light within reach. Safety measures in place including bed locked and in lowest position, and two side rails up. Will continue to monitor for any changes.
[2020-05-19 09:00] VITALS: BP 121/86
[2020-05-19] MEDS: DexAMETHasone SOD PHOS 10MG/1ML VIAL INJ IV SCH (10:29)
[2020-05-19] MEDS: FUROSEMIDE 40 MG/4 ML VIAL IV SCH (10:29)
[2020-05-19] MEDS: ENOXAPARIN SOD 40 MG/0.4 ML SYRINGE SC SCH ×2 (10:30→22:46)
[2020-05-19] MEDS: HYDROcodone-ACET 5/325MG TAB PO PRN ×2 (10:30→20:44)
[2020-05-19] MEDS: CHOLECALCIFEROL (VITD3) 2,000 UNIT CAP PO SCH (10:31)
[2020-05-19] MEDS: MONTELUKAST SODIUM 10 MG TAB PO SCH (10:31)
[2020-05-19] MEDS: ASCORBIC ACID 1,000 MG TAB PO SCH (10:31)
[2020-05-19] MEDS: ZINC SULFATE 220mg CAP or TAB PO SCH (10:31)
[2020-05-19] MEDS: SPIRONOLACTONE 25 MG TAB PO SCH (10:32)
[2020-05-19] MEDS: ASPirin 81 mg TAB PO SCH (10:32)
[2020-05-19] MEDS: DOXYCYCLINE 100MG/250ML 250 ML IV SCH ×2 (10:32→22:45)
--- NOTE | 2020-05-19 11:34 | NUR ---
Nutrition Assessment Est energy needs 3576-3982 kcal (11-14 kcal/kg BW 168kg) est protein needs 84-109g (1-1.3g/kg IBW 84kg) Will monitor and reassess prn. Addendum: 05/19/20 at [address] Amended: Links added.
[2020-05-19 12:49] VITALS: BP 127/78
[2020-05-19] MEDS: REMDESIVIR 100 MG in SODIUM CHL 0.9% 250 ML IV SCH (15:29)
[2020-05-19 15:43] LABS: Urine Bacteria NONE SEEN /hpf (None Seen); Urine Blood Negative /uL (Negative); Urine Specific Gravity 1.012 (1.001-1.035); Urine WBC <1 /hpf (0 - 3)
[2020-05-19 15:58] LABS: Amphetamine Screen, Urine NEGATIVE (NEGATIVE); Barbiturate Scree,Urine NEGATIVE (NEGATIVE); Benzodiazephine Screen, Urine NEGATIVE (NEGATIVE); Cannabinoid Screen, Urine NEGATIVE (NEGATIVE); Cocaine Screen, Urine NEGATIVE (NEGATIVE); Opiate Scree,Urine NEGATIVE (NEGATIVE); Phencyclidine Screen, Urine NEGATIVE (NEGATIVE)
[2020-05-19 15:59] LABS: Alcohol, Urine < 3.0 mg/dL (0-10)
--- NOTE | 2020-05-19 16:35 | NUR ---
REMDESIVIR Medication ended. Patient tolerated medication well, will continue to monitor. REMDESIVIR INFUSION VITALS Pre Infusion Vitals: Heart Rate: 84 BP: 130/81 Temperature: 98.3 O2: 95 Respiratory Rate: 18 15 minute vitals: Heart Rate: 78 BP: 129/66 Temperature: 97.8 O2: 100 Respiratory Rate: 18 Post Infusion Vitals: Heart Rate: 73 BP: 131/72 Temperature: 98.2 O2: 95 Respiratory Rate: 18
[2020-05-19 16:39] VITALS: BP 129/66
--- NOTE | 2020-05-19 17:35 | NUR ---
REMDESIVIR 1 hour post infusion vitals: Heart Rate: 73 Blood Pressure: 118/70 Respiratory Rate: 20 Temperature: 98.4 O2: 94
--- NOTE | 2020-05-19 20:00 | NUR ---
Opening Shift Note Assumed care of patient. Awake, alert and oriented x4. No S/S of distress/SOB or pain. Pt is on 3L NC with even unlabored respirations. Instructed on POC and to call for assist PRN. Bed locked, in lowest position, call light within reach, side rails up x2. Will continue to monitor for changes Q1hr and PRN.
[2020-05-19 22:00] VITALS: BP 120/65
[2020-05-19] MEDS: ATORVASTATIN 20 MG TAB PO SCH (22:46)
[2020-05-19] MEDS: METOPROLOL SUCCINATE XL 50 MG TAB PO SCH (22:46)
[2020-05-20] MEDS: HYDROcodone-ACET 5/325MG TAB PO PRN (04:54)
[2020-05-20 05:00] VITALS: BP 125/78
[2020-05-20 08:00] VITALS: BP 138/68
[2020-05-20 08:49] VITALS: BP 111/63
[2020-05-20] MEDS: DexAMETHasone SOD PHOS 10MG/1ML VIAL INJ IV SCH (09:35)
[2020-05-20] MEDS: FUROSEMIDE 40 MG/4 ML VIAL IV SCH ×2 (09:35→18:42)
[2020-05-20] MEDS: ASPirin 81 mg TAB PO SCH (09:36)
[2020-05-20] MEDS: ZINC SULFATE 220mg CAP or TAB PO SCH (09:36)
[2020-05-20] MEDS: MONTELUKAST SODIUM 10 MG TAB PO SCH (09:36)
[2020-05-20] MEDS: DOXYCYCLINE 100MG/250ML 250 ML IV SCH (09:36)
[2020-05-20] MEDS: SPIRONOLACTONE 25 MG TAB PO SCH (09:36)
[2020-05-20] MEDS: ENOXAPARIN SOD 40 MG/0.4 ML SYRINGE SC SCH ×2 (09:37→22:51)
[2020-05-20] MEDS: CHOLECALCIFEROL (VITD3) 2,000 UNIT CAP PO SCH (09:37)
[2020-05-20] MEDS: ASCORBIC ACID 1,000 MG TAB PO SCH (09:37)
[2020-05-20] MEDS: BUDESONIDE (INHALATION) 180 MCG IH IN SCH ×2 (10:00→22:25)
[2020-05-20] MEDS: ALBUTEROL SULF HFA 90MCG INH 200DOSE IN PRN ×2 (10:40→22:26)
--- NOTE | 2020-05-20 11:39 | NUR ---
Nutrition Assessment Notes Please refer to link for full assessment notes. Est Energy needs: 2557-7160 kcals (12-15 kcal/kgBW) Est Protein needs: 168-210 gms/day (2.0-2.5 gm/kgIBW of 84 kg) Will continue to monitor and reassess prn. Addendum: 05/20/20 at [address] Amended: Links added.
--- NOTE | 2020-05-20 11:50 | NUR ---
DR WARNER AT BED SIDE EXPLAIN ING TO PT WHAT IS CARDIOMYOPATHY AND ITS VERY RISKY, PLANING TO DISCHARGE PT BY SATURDAY IF HE IMPROVE , WILL REPEAT TSH, ALSO ENCOURAGE PT TO DO PRONING POSITION FOR A BETTER BREATHING
[2020-05-20 11:58] LABS: Potassium 4.3 mmol/L (3.5-5.1)
[2020-05-20 12:07] LABS: Albumin 3.4 g/dL (3.4-5.0); BUN/Creatinine Ratio 27.9; Bilirubin, Total 2.6 mg/dL (0.2-1.0); Calcium 8.7 mg/dL (8.5-10.1); Total Protein 7.1 g/dL (6.4-8.2)
[2020-05-20 12:44] VITALS: BP 117/60
[2020-05-20] MEDS: REMDESIVIR 100 MG in SODIUM CHL 0.9% 250 ML IV SCH (15:32)
--- NOTE | 2020-05-20 15:32 | NUR ---
REMEDISIVIR IV INITIATED PRE SET OF VS TAKEN, CONTINUE MONITORING
[2020-05-20] MEDS ORDERED: cefTRIAXone 1GM/50ML D5W 50 ML IV ONE (16:00)
--- NOTE | 2020-05-20 16:32 | NUR ---
PT TOLERATED REMEDISIVIR WELL, NO DISTRESS NOTED, CONTINUE MONITORING
[2020-05-20 17:10] VITALS: BP 106/66
--- NOTE | 2020-05-20 18:00 | NUR ---
IV insertion IV access obtained, via clean sterile technique by inserting 22 gauge catheter at after attempt(s). IV secured properly. No trauma to site. Patient tolerated procedure well.
--- NOTE | 2020-05-20 18:43 | NUR ---
PT CONTINUE STABLE, CONTINUE MONITORING
[2020-05-20 22:22] VITALS: BP 96/60
[2020-05-20] MEDS: METOPROLOL SUCCINATE XL 50 MG TAB PO SCH (22:50)
[2020-05-20] MEDS: ATORVASTATIN 20 MG TAB PO SCH (22:50)
[2020-05-20] MEDS: DOXYCYCLINE 100 MG TAB/CAP PO SCH (22:51)
[2020-05-21] MEDS: HYDROcodone-ACET 5/325MG TAB PO PRN
[2020-05-21 05:31] VITALS: BP 136/84
[2020-05-21] MEDS: FUROSEMIDE 40 MG/4 ML VIAL IV SCH ×2 (05:42→17:07)
[2020-05-21 08:00] VITALS: BP 136/84
--- NOTE | 2020-05-21 08:00 | NUR ---
ASSESSMENT NOTE PT IS ALERT ORIENTED X4, RESTING IN BED COMFORTABLY, ABLE TO SELF REPOSITION AND VERBALIS HER DEMANDS, PT IS OBESE WITH LARGE ABDOMEN, OXYGEN 4 L NC, SAT AT 96 %, PAIN 0/10 AT THIS TIME, CONTINUE MONITORING
[2020-05-21 09:00] VITALS: BP 137/84
[2020-05-21] MEDS: ZINC SULFATE 220mg CAP or TAB PO SCH (10:00)
[2020-05-21] MEDS: BUDESONIDE (INHALATION) 180 MCG IH IN SCH ×2 (10:00→20:28)
[2020-05-21] MEDS: DexAMETHasone SOD PHOS 10MG/1ML VIAL INJ IV SCH (10:00)
[2020-05-21] MEDS: cefTRIAXone 1GM/50ML D5W 50 ML IV SCH (10:00)
[2020-05-21] MEDS: ASPirin 81 mg TAB PO SCH (10:00)
[2020-05-21] MEDS: SPIRONOLACTONE 25 MG TAB PO SCH (10:01)
[2020-05-21] MEDS: ASCORBIC ACID 1,000 MG TAB PO SCH (10:01)
[2020-05-21] MEDS: MONTELUKAST SODIUM 10 MG TAB PO SCH (10:01)
[2020-05-21] MEDS: DOXYCYCLINE 100 MG TAB/CAP PO SCH ×2 (10:01→22:03)
[2020-05-21] MEDS: CHOLECALCIFEROL (VITD3) 2,000 UNIT CAP PO SCH (10:02)
[2020-05-21] MEDS: ENOXAPARIN SOD 40 MG/0.4 ML SYRINGE SC SCH ×2 (11:01→22:03)
[2020-05-21 11:06] LABS: Hemoglobin 10.1 g/dL (13.5-17.5); Mean Corpuscular Volume 61.4 fL (80.0-100.0)
[2020-05-21 11:07] LABS: Hematocrit 34.7 % (41.0-53.0); Mean Corpuscular Hemoglobin 17.9 pg (28.0-32.0); Mean Corpuscular Hgb Conc. 29.1 g/dL (32.0-36.0); Platelet Count (auto) 398 10^3/uL (140-450); Red Blood Cells 5.65 10^6/uL (4.5-5.90); White Blood Cell 7.4 10^3/uL (4.4-10.8)
[2020-05-21 11:10] LABS: Red Cell Distribution Width 20.5 % (11.8-14.3)
[2020-05-21 11:11] LABS: Basophils % (manual) 0 (0.0-2.0); Blast Cells 0; Eosinophils % (manual) 0 (0-7); Metamyelocytes % 0; Myelocytes % 0; Promyelocytes % 0; Reactive Lymphocytes 0
[2020-05-21 11:35] LABS: Albumin 3.4 g/dL (3.4-5.0); Calcium 8.8 mg/dL (8.5-10.1); Potassium 4.3 mmol/L (3.5-5.1)
[2020-05-21 11:38] LABS: BUN/Creatinine Ratio 32.4; Bilirubin, Total 2.2 mg/dL (0.2-1.0)
[2020-05-21 13:02] VITALS: BP 126/73
--- NOTE | 2020-05-21 14:28 | NUR ---
DR US AT BED SIDE, FOLLOWING UP ON PT, PT STATED MY GRANDPA JUST DIAGNOSE WITH COVID, HE DOES NOT HAVE ANYWHERE TO GO, ALSO HE DOES NOT HAVE A CPAP MACHINE AT HOME, NEW ORDERS OBTAIN
[2020-05-21 14:37] LABS: Band Neutrophils % (manual) 2; Lymphocytes % (manual) 18 (10.0-50.0); Monocytes % (manual) 11 (0-12)
[2020-05-21] MEDS: REMDESIVIR 100 MG in SODIUM CHL 0.9% 250 ML IV SCH (15:27)
--- NOTE | 2020-05-21 15:27 | NUR ---
REMEDISIVIR IV INITIATED PRE SET OF VS TAKEN, CONTINUE MONITORING
--- NOTE | 2020-05-21 16:27 | NUR ---
PT TOLERATED REMEDISIVIR WELL, NO DISTRESS NOTED, CONTINUE MONITORING
[2020-05-21 17:04] VITALS: BP 143/86
--- NOTE | 2020-05-21 18:53 | NUR ---
PT CONTINUE STABLE, CONTINUE MONITORING
[2020-05-21] MEDS: ALBUTEROL SULF HFA 90MCG INH 200DOSE IN PRN (20:28)
[2020-05-21] MEDS: ATORVASTATIN 20 MG TAB PO SCH (22:02)
[2020-05-21] MEDS: METOPROLOL SUCCINATE XL 50 MG TAB PO SCH (22:03)
[2020-05-21 22:29] VITALS: BP 122/61
[2020-05-22] VITALS (8 sets, daily range): BP systolic 109–147; BP diastolic 55–82
[2020-05-22] MEDS: FUROSEMIDE 40 MG/4 ML VIAL IV SCH ×2 (06:04→18:27)
[2020-05-22] MEDS: ALBUTEROL SULF HFA 90MCG INH 200DOSE IN PRN (06:50)
[2020-05-22] MEDS: BUDESONIDE (INHALATION) 180 MCG IH IN SCH ×2 (06:50→19:00)
--- NOTE | 2020-05-22 08:00 | NUR ---
ASSESSMENT NOTE PT IS ALERT ORIENTED X4, RESTING IN BED COMFORTABLY, ABLE TO SELF REPOSITION AND VERBALIS HER DEMANDS, PT IS OBESE WITH LARGE ABDOMEN, OXYGEN 3 L NC, SAT AT 98 %, PAIN 0/10 AT THIS TIME, CONTINUE MONITORING
[2020-05-22] MEDS: DexAMETHasone SOD PHOS 10MG/1ML VIAL INJ IV SCH (10:03)
[2020-05-22] MEDS: cefTRIAXone 1GM/50ML D5W 50 ML IV SCH (10:03)
[2020-05-22] MEDS: ZINC SULFATE 220mg CAP or TAB PO SCH (10:04)
[2020-05-22] MEDS: SPIRONOLACTONE 25 MG TAB PO SCH (10:04)
[2020-05-22] MEDS: DOXYCYCLINE 100 MG TAB/CAP PO SCH ×2 (10:04→22:47)
[2020-05-22] MEDS: MONTELUKAST SODIUM 10 MG TAB PO SCH (10:04)
[2020-05-22] MEDS: ASPirin 81 mg TAB PO SCH (10:04)
[2020-05-22] MEDS: ENOXAPARIN SOD 40 MG/0.4 ML SYRINGE SC SCH ×2 (10:05→22:48)
[2020-05-22] MEDS: CHOLECALCIFEROL (VITD3) 2,000 UNIT CAP PO SCH (10:05)
[2020-05-22] MEDS: ASCORBIC ACID 1,000 MG TAB PO SCH (10:05)
--- NOTE | 2020-05-22 10:43 | NUR ---
SLEEP APNEA PT FALL ASLEEP DURING CONVERSATIONS ANY TIME, A STRONG SLEEP APNEA NOTED
--- NOTE | 2020-05-22 11:50 | NUR ---
DR US AT BED SIDE FOLLOWING UP ON PT, EXPLAIN THE PLAN OF CARE TO PT, VERBALIS UNDERSTANDING
--- NOTE | 2020-05-22 18:27 | NUR ---
PT CONTINUE STABLE, CONTINUE MONITORING
--- NOTE | 2020-05-22 19:40 | NUR ---
OPENING SHIFT NOTE Assumed care of patient who is A&O x4. Currently on 2L NC with no s/s of distress. Reports 8/ headache. Pain management options discussed. PIV in right hand is intact and patent. Flushed with 10ml NS. Patient is ambulatory without the use of assistive devices at baseline. Bed is in low locked position with side rails up x2. Call light is within reach and patient encouraged to call for assistance when needed. Will continue to monitor for changes PRN.
[2020-05-22] MEDS: HYDROcodone-ACET 5/325MG TAB PO PRN (21:00)
[2020-05-22] MEDS: ATORVASTATIN 20 MG TAB PO SCH (22:47)
[2020-05-22] MEDS: METOPROLOL SUCCINATE XL 50 MG TAB PO SCH (22:47)
--- NOTE | 2020-05-22 23:50 | NUR ---
Patient reports muscle cramping in bilateral hips. Electrolytes are all within range. Patient instructed to change positions frequently and was provided heat packs to apply to the area. Will continue to monitor.
--- NOTE | 2020-05-23 03:00 | NUR ---
ROUNDS Patient is resting in bed with eyes closed. C-pap on and no distress noted. Call light is within reach.
--- NOTE | 2020-05-23 05:18 | NUR ---
potline monitor battery changed. Currently reading sinus rhythm at 67.
[2020-05-23] MEDS: FUROSEMIDE 40 MG/4 ML VIAL IV SCH ×2 (05:51→17:24)
[2020-05-23 05:55] VITALS: BP 138/86
--- NOTE | 2020-05-23 07:30 | NUR ---
SLEEP APNEA PATIENT HAS A SEVERE SLEEP APNEA, SAT AT 88 % IN ROOM AIR DURING SLEEPING
[2020-05-23 08:00] VITALS: BP_SYST 134; BP_SYST 138; BP_DIAS 82; BP_DIAS 86
[2020-05-23] MEDS: BUDESONIDE (INHALATION) 180 MCG IH IN SCH ×2 (08:29→20:39)
[2020-05-23] MEDS: ALBUTEROL SULF HFA 90MCG INH 200DOSE IN PRN ×2 (08:29→20:39)
[2020-05-23] MEDS: DexAMETHasone SOD PHOS 10MG/1ML VIAL INJ IV SCH (10:02)
[2020-05-23] MEDS: cefTRIAXone 1GM/50ML D5W 50 ML IV SCH (10:02)
[2020-05-23] MEDS: MONTELUKAST SODIUM 10 MG TAB PO SCH (10:03)
[2020-05-23] MEDS: SPIRONOLACTONE 25 MG TAB PO SCH (10:03)
[2020-05-23] MEDS: ZINC SULFATE 220mg CAP or TAB PO SCH (10:03)
[2020-05-23] MEDS: ASPirin 81 mg TAB PO SCH (10:03)
[2020-05-23] MEDS: DOXYCYCLINE 100 MG TAB/CAP PO SCH ×2 (10:04→22:00)
[2020-05-23] MEDS: ASCORBIC ACID 1,000 MG TAB PO SCH (10:04)
[2020-05-23] MEDS: ENOXAPARIN SOD 40 MG/0.4 ML SYRINGE SC SCH ×2 (10:04→22:00)
[2020-05-23] MEDS: CHOLECALCIFEROL (VITD3) 2,000 UNIT CAP PO SCH (10:04)
--- NOTE | 2020-05-23 12:20 | NUR ---
DR MONTGOMERY AT BED SIDE FOLLOWING UP ON PT, EXPLAINING TO PT THE DISCHARGE HOME PLANING FOR TOMORROW AND STAY [facility] FOR 14 DAYS, THEN FOLLOW UP WITH DR PEREZ OUT PATIENT ND REQUEST FOR SLEEP APNEA STUDY
[2020-05-23 13:00] VITALS: BP 120/81
[2020-05-23] MEDS: HYDROcodone-ACET 5/325MG TAB PO PRN (16:16)
--- NOTE | 2020-05-23 16:24 | NUR ---
Nutrition Followup Notes Pt wt is 143.4 kg Pt is positive for COVID, in isolation. Pt is with a Cardiac 2gNa diet, appetite is good aeb 100% x6 PO intake per RN doc. Refer to nutrition recommendations noted below under Comments. Est Energy needs: 0274-4216 kcals (12-15 kcal/kgBW) Est Protein needs: 168-210 gms/day (2.0-2.5 gm/kgIBW of 84 kg) Will continue to monitor and reassess prn. LABS: BUN 48 H, GLUC 111 H, BILI 2.2 H, AST 212 H, ALT 235 H, ALK PHOS 125 H GI: Pt had 1 BM today per RN doc BS: 21 low risk. Refer to wound assessment report for further details PES: 1) Obesity r/t energy intake in excess of energy needs aeb BMI of 48.9 kg/m2 2) Altered nutrition related lab values r/t current/chronic medical condition aeb elev RFTs, hyperglycemia Malnutrition related to morbid Weight 200% of ideal wt Malnutrition related to morbid obesity Yes Recommendations by RD Dietary education by RD Comments Will continue to monitor PO status, skin status, pertinent labs and weight trends. Will f/u in 2-3 days 1) Continue to closely monitor pt PO intake to meet at least 75% of meals 2) Suggest a CCHO 75g diet 3) Refer pt to a OP RD upon D/C 4) Continue current plan of care
[2020-05-23 17:00] VITALS: BP 112/80
--- NOTE | 2020-05-23 18:02 | NUR ---
CPAP URIEL FROM [employer], WITH A MESSAGE THAT C-PAP IS NOT CONTRACTED WITH MEDICAL INSURANCE
--- NOTE | 2020-05-23 18:45 | NUR ---
PT CONTINUE STABLE, CONTINUE MONITORING
[2020-05-23] MEDS: MORPHINE SULF INJ 2 MG/ML SYRINGE 1ML IV PRN (19:49)
[2020-05-23] MEDS: ATORVASTATIN 20 MG TAB PO SCH (21:59)
[2020-05-23 22:00] VITALS: BP 117/72
[2020-05-23] MEDS: METOPROLOL SUCCINATE XL 50 MG TAB PO SCH (22:00)
--- NOTE | 2020-05-24 02:22 | NUR ---
PATIENT PLACED ON CPAP AT THIS TIME. WILL CONTINUE TO MONITOR.
[2020-05-24] MEDS: FUROSEMIDE 40 MG/4 ML VIAL IV SCH (06:17)
[2020-05-24 07:58] LABS: Basophils # (auto) 0 10 ^3/uL (0-0.2); Basophils % (auto) 0.1 % (0.0-2.0); Eosinophils # (auto) 0 10 ^3/uL (0-0.8); Lymphocytes # (auto) 0.8 10 ^3/uL (0.4-5.4); Mean Corpuscular Volume 61.3 fL (80.0-100.0); Monocytes # (auto) 0.7 10 ^3/uL (0-1.3)
[2020-05-24 08:00] VITALS: BP 125/84
[2020-05-24 08:00] LABS: Eosinophils % (auto) 0.1 % (0.0-7.0); Hematocrit 35.1 % (41.0-53.0); Hemoglobin 10.3 g/dL (13.5-17.5); Mean Corpuscular Hemoglobin 18.1 pg (28.0-32.0); Mean Corpuscular Hgb Conc. 29.5 g/dL (32.0-36.0); Monocytes % (auto) 9.2 % (0.0-12.0); Neutrophils # (auto) 5.8 10 ^3/uL (1.6-8.6); Neutrophils % (auto) 79.6 % (37.0-80.0); Platelet Count (auto) 393 10^3/uL (140-450); Red Blood Cells 5.72 10^6/uL (4.5-5.90); White Blood Cell 7.3 10^3/uL (4.4-10.8)
--- NOTE | 2020-05-24 08:10 | NUR ---
Opening Shift Note Assumed care of patient, awake and alert. No S/S of distress/SOB. Patient c/o 8/10 lower back pain. Will follow medications orders. Patient is on 2L NC. Instructed on POC and to call for assist PRN, will continue to monitor for changes Q1hr and PRN. Bed is locked and in lowest position. Call light within reach.
[2020-05-24 08:11] LABS: Potassium 4.8 mmol/L (3.5-5.1)
[2020-05-24 08:18] LABS: BUN/Creatinine Ratio 33.6; Calcium 9.1 mg/dL (8.5-10.1)
[2020-05-24] MEDS: cefTRIAXone 1GM/50ML D5W 50 ML IV SCH (08:55)
[2020-05-24] MEDS: MORPHINE SULF INJ 2 MG/ML SYRINGE 1ML IV PRN (08:55)
[2020-05-24] MEDS: ENOXAPARIN SOD 40 MG/0.4 ML SYRINGE SC SCH (10:00)
[2020-05-24] MEDS: DexAMETHasone SOD PHOS 10MG/1ML VIAL INJ IV SCH (10:43)
[2020-05-24] MEDS: ZINC SULFATE 220mg CAP or TAB PO SCH (10:43)
[2020-05-24] MEDS: CHOLECALCIFEROL (VITD3) 2,000 UNIT CAP PO SCH (10:44)
[2020-05-24] MEDS: SPIRONOLACTONE 25 MG TAB PO SCH (10:44)
[2020-05-24] MEDS: DOXYCYCLINE 100 MG TAB/CAP PO SCH (10:44)
[2020-05-24] MEDS: ASPirin 81 mg TAB PO SCH (10:45)
[2020-05-24] MEDS: MONTELUKAST SODIUM 10 MG TAB PO SCH (10:45)
[2020-05-24] MEDS: ASCORBIC ACID 1,000 MG TAB PO SCH (10:45)
[2020-05-24] MEDS ORDERED: ASCO10003 PO (11:06)
[2020-05-24 12:37] VITALS: BP 116/69
--- NOTE | 2020-05-24 15:18 | NUR ---
DISCHARGE PATIENT GIVEN DISCHARGE PAPERWORK, ALL QUESTIONS AND CONCERNS ANSWERED. PATIENT WILL BE DISCHARGED ON ROOM AIR. PATIENT PRESCRIPTION FILLED BY PREFERRED PHARMACY. PATIENT HAS AN APPOINTMENT WITH CARDIOLOGY DR. Vivek GRIGGS FOR 06/10/2020 AT 3 PM. PATIENT TELEBOX REMOVED AND SENT TO ICU HEART LAB. PATIENT WILL AWAIT GRAPHIC ENGINEER FROM FAMILY. IV removal IV DC'd ON RIGHT HAND with clean sterile technique, catheter fully intact. Pressure dressing applied to site. Patient tolerated well.
== END 2020-05-24 15:45 | disposition home or self-care (01) | DRG 720 ==
LOC: EDBD 06:18 → ER 06:18 → OVERFLOW 10:52 → TELE-WESTW 21:41
PROVIDERS: ADMIT Hospitalist; ATTEND Internal Medicine Pulmonary Disease
PROC: XW033E5 Introduction of Remdesivir Anti-infective into Peripheral Vein, Percutaneous Approach, New Technology Group 5 (ICD-10-PCS; 2020-05-17)
PROC: 5A09357 Assistance with Respiratory Ventilation, Less than 24 Consecutive Hours, Continuous Positive Airway Pressure (ICD-10-PCS; principal; 2020-05-19)
PROC: 5A09357 Assistance with Respiratory Ventilation, Less than 24 Consecutive Hours, Continuous Positive Airway Pressure (ICD-10-PCS; 2020-05-20)
PROC: 5A09357 Assistance with Respiratory Ventilation, Less than 24 Consecutive Hours, Continuous Positive Airway Pressure (ICD-10-PCS; 2020-05-21)
PROC: 5A09357 Assistance with Respiratory Ventilation, Less than 24 Consecutive Hours, Continuous Positive Airway Pressure (ICD-10-PCS; 2020-05-24)
DX: A41.89 Other specified sepsis (principal); U07.1 COVID-19; J96.01 Acute respiratory failure with hypoxia; J12.89 Other viral pneumonia; I42.0 Dilated cardiomyopathy; I50.43 Acute on chronic combined systolic (congestive) and diastolic (congestive) heart failure; E87.1 Hypo-osmolality and hyponatremia; D64.9 Anemia, unspecified; E66.01 Morbid (severe) obesity due to excess calories; E78.5 Hyperlipidemia, unspecified; E44.1 Mild protein-calorie malnutrition; E11.22 Type 2 diabetes mellitus with diabetic chronic kidney disease; E11.65 Type 2 diabetes mellitus with hyperglycemia; I13.0 Hypertensive heart and chronic kidney disease with heart failure and stage 1 through stage 4 chronic kidney disease, or unspecified chronic kidney disease; I50.82 Biventricular heart failure; J44.0 Chronic obstructive pulmonary disease with (acute) lower respiratory infection; G47.33 Obstructive sleep apnea (adult) (pediatric); N17.9 Acute kidney failure, unspecified; N18.30 Chronic kidney disease, stage 3 unspecified; R65.20 Severe sepsis without septic shock; Z80.3 Family history of malignant neoplasm of breast; Z82.49 Family history of ischemic heart disease and other diseases of the circulatory system; Z83.3 Family history of diabetes mellitus; Z85.028 Personal history of other malignant neoplasm of stomach; Z23 Encounter for immunization; Z68.42 Body mass index [BMI] 45.0-49.9, adult
CPT/HCPCS: 36415; 36600; 71045; 80048; 80053; 80061; 80307; 81001; 82728; 82805; 83036; 83605; 83615; 83735; 83880; 84439; 84443; 84484; 85007; 85025; 85027; 85379; 85610; 85730; 86141; 87040; 87086; 87426; 87804; 93005; 94640; 94660; 96365; 96366; 96375; 96376; 99291; G0378; J0696; J1100; J3490

== ENCOUNTER 2020-06-02 09:05 | Emergency (ER) | payer MEDICAID ==
[~2020-06-02] VITALS: Ht 180.3 cm; Wt 158.8 kg
[~2020-06-02 09:05] MED LIST changes: +ASCO10003 PO; +ASPI-498 PO; +FLUT45AE2 IN; -POTA10TA51 PO; +POTA8TAB2 PO
[2020-06-02 09:12] VITALS: BP 0/0
== END 2020-06-02 19:25 ==
LOC: EDBD 09:05 → ER 09:05
DX: I46.9 Cardiac arrest, cause unspecified (principal); R06.89 Other abnormalities of breathing; R41.82 Altered mental status, unspecified; I11.0 Hypertensive heart disease with heart failure; I50.9 Heart failure, unspecified; J45.909 Unspecified asthma, uncomplicated
CPT/HCPCS: 31500; 92950